=== PATIENT | female | born 1940 | race Caucasian/White ===

== ENCOUNTER 2016-11-17 13:31 | Observation (INO) | payer MEDICARE, BC ==
--- OUTSIDE RECORDS SUMMARY | 2016-11-17 14:30 | XMS REPORT | Continuity of Care Document ---
:1940 Author Organization [facility] ([facility]) Address [address] [place] [address] Phone [phone] Care Team Providers Name Role Phone Renea Gee Primary Care Provider [phone] Source Comments This disclosure is being made pursuant to the Care Everywhere program, applicable federal and state laws, and may not contain all informaitonavailable regarding this patient.[facility] ([facility]) Active Allergies and Adverse Reactions Allergen Noted Date Severity Reactions Comments Allopurinol 01/19/2010 Medium Fever,Elevated Creatinine,Rash Amoxicillin 06/19/2015 OTHER swollen Doxycycline Angioedema Fructose 01/09/2010 Diarrhea Gluten 02/24/2010 Diarrhea Pt has Celiac Disease Lactose 01/09/2010 Diarrhea Levofloxacin 06/19/2015 Urticaria (Hives) Red and swollen Meloxicam 04/02/2014 Angioedema Current Medications Prescription Sig. Disp. Refills Start Date End Date Status aspirin-acetaminophe take by mouth. Take 10/25/2006 Active n-caffeine (EXCEDRIN 1 tab up to 4 times EXTRA STRENGTH) daily as needed 250-250-65 mg Tab per tablet SIMETHICONE (GAS-X take by mouth. Dose 04/21/2004 Active PO) unknown--take as needed lactobacillus Take 1 Cap by mouth Active rhamnosus, gg, daily. (CULTURELLE) 10 billion cell capsule GREEN TEA EXTRACT PO Take 800 mg by mouth Active daily. multivitamin Take 1 Tab by mouth Active (MULTI-VITAMIN daily. HI-PO) tablet VITAMIN B COMPLEX PO Take 1 Tab by mouth Active daily. zolpiDEM 5 mg tablet Take 1 Tab by mouth 30 Tab 2 03/29/2012 Active at bedtime as needed. Indications: SLEEP-ONSET INSOMNIA ALPRAZolam 0.25 mg Take 1 Tab by mouth 30 Tab 0 03/29/2012 Active tablet at bedtime as needed. Indications: ANXIETY BIOTIN PO Take by mouth daily. Active esomeprazole Take 1 Cap by mouth 30 Cap 11 06/29/2012 Active (NEXIUM) 40 mg EC at bedtime. capsule Indications: GASTROESOPHAGEAL REFLUX diphenoxylate-atropi Take as needed for 60 Tab 2 01/08/2013 Active ne (LOMOTIL) diarrhea 2.5-0.025 mg per Indications: DIARRHEA tablet TURMERIC (CURCUMIN 1 Tab 2 times daily Active NA ) venlafaxine 37.5 mg Take 37.5 mg by mouth 10/03/2014 Active tablet daily. aspirin 81 mg EC Take 1 tablet (81 mg 30 tablet 11 07/06/2016 Active tablet total) by mouth daily. atorvastatin 40 mg Take 1 tablet (40 mg 90 tablet 3 07/06/2016 Active tablet total) by mouth daily. furosemide 20 mg Take 1 tablet (20 mg 90 tablet 3 07/06/2016 Active tablet total) by mouth daily. spironolactone 25 mg Take 0.5 tablets 90 tablet 3 07/06/2016 Active tablet (12.5 mg total) by mouth daily. ubiquinol (COQ10) Take 100 mg by mouth Active 100 mg capsule daily. Vitamin E 100 unit Take 100 Units by Active capsule mouth daily. metoPROLol succinate Take 1 tablet (50 mg 90 tablet 3 09/09/2016 Active 50 mg XL tablet total) by mouth daily. losartan 100 mg Take 1 tablet (100 mg 30 tablet 11 09/21/2016 Active tablet total) by mouth daily. 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 11/07/2016 Telephone Cardiac Karla Baxter Chief Comp: Symptom Rehabilitation Rajan RN Management 10/18/2016 Office Visit Cardiac Yogi Dx: CAD in [place] Rehabilitation Oscar Tolentino MD artery (Primary Dx) 10/18/2016 Office Visit Cardiac [facility]ogi Dx: Cardiomyopathy Rehabilitation MD Ameya Garcia Ramzi N, MD 10/14/2016 Office Visit Med Hematology and Link, Nicolas K, Dx: CLL (chronic Oncology MD sandra Rodriguez, leukemia) (Primary Unique A, Dx) [employer]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 09/21/2016 Hospital Encounter Internal Medicine - Yogi, Dx: Cardiomyopathy Primary Oscar Tolentino MD 09/21/2016 Surgery Cardiology Yogi, Coronary Angiography Oscar Tolentino MD 09/20/2016 Telephone Cardiology Obdulio, Chief Comp: Pre-op Neena Girard RN Exam 09/09/2016 Office Visit Pathology Yogi, Chief Comp: Patient Oscar Tolentino MD Reported Reason For Lab Services, Visit Irl 09/09/2016 Office Visit Cardiac Yogi Dx: Cardiomyopathy Rehabilitation Oscar Tolentino MD (Primary Dx) Immunizations Name Dates Previously Given Next Due Influenza, unspecified 03/03/2015,04/08/2013,04/16/2012,04/26/2006 Pneumococcal, unspecified 03/03/2015,01/24/2008 Social History Tobacco Use Types Packs/Day Years Used Date Never Smoker Smokeless Tobacco: Never Used Tobacco Cessation:Counseling Given: Yes Comments: Alcohol Use Drinks/Week oz/Week Comments Yes 2 Glasses of wine 0.5 - 1.0 social Last Filed Vital Signs Vital Sign Reading Time Taken Blood Pressure 122/72 10/18/2016 1:25 PM CDT Pulse 57 10/18/2016 1:25 PM CDT Temperature 37 C (98.6 F) 10/14/2016 10:21 AM CDT Respiratory Rate 16 10/14/2016 10:21 AM CDT Height 1.524 m (5') 10/18/2016 1:25 PM CDT Weight 60.782 kg (134 lb) 10/18/2016 1:25 PM CDT Body Mass Index 26.17 10/18/2016 1:25 PM CDT Oxygen Saturation 92% 10/18/2016 1:25 PM CDT Plan of Care Date Type Specialty Providers Description 12/08/2016 Appointment Renal and Hypertension Suneja, Silverio, MD Chief Comp: Patient [address] [place] [address] Visit [phone] (Fax) 02/01/2017 Appointment Heart and Vascular WalkerOscar, Subj: Appointment MD Scheduled [address] [place] [address] [phone] (Fax) 04/12/2017 Appointment Med Hematology and Nicolas Lauren MD Subj: Appointment Oncology [address] [facility] [place] [address] [phone] (Fax) Health Maintenance Due Date Last Done Comments Hepatitis B Vaccine (1 of 3 1940 - Primary Series) Tdap Vaccine 1952 Td Vaccine 1959 Mammogram 1981 Zoster Vaccine 2001 Osteoporosis Screening (DXA 2006 Bone Density) Pneumococcal Vaccine (1 of 2 2006 - PCV13) Lipid Disorder Screening 03/31/2016 03/31/2011, 03/18/2010 Influenza Vaccine: Seasonal 01/31/2017 03/03/2015, Additional history exists (Season Ended) 2013, 04/16/2012 Colonoscopy 12/14/2020 12/14/2010 Results from Last 3 Months DERMATOPATHOLOGY EXAM (11/09/2016 2:24 AM) Component Value Range Case Report Surgical Pathology Case: [id number] Authorizing Provider:Lab Services, [facility] Collected: 11/09/2016 02:24 AM Pathologist: Toni Melo MD Received:11/11/2016 07:50 AM Specimen:Skin, other, specify, Lip lower Diagnosis Skin, lower lip, shave biopsy: Features consistent with herpetic infection. Focal superficial scar. Brisk lymphoplasmacytic inflammation. Clinical Information Tissue source/site: Left lip. Pertinent clinical history and findings: 0.5 cm erythematous pearly papule. Clinical differential diagnosis: BCC vs scar. Gross Description A.Received in formalin, in a container labeled [place] R C, date of , and "Lip lower", is a 0.7 x 0.4 x 0.1 cm corley shave biopsy.The specimen is inked, bisected and submitted entirelyin A1. LRL/tkr Microscopic Description Sections show a skin shave demonstrating focal intraepidermal vesiculation featuring acantholysis and multinucleated giant cells with molded, enlarged nuclei exhibiting margination of chromatin, assoc iated with adjacent necroinflammatory debris, and underlying brisk, lymphoplasmacytic chronic inflammation.Focal central epidermal rete ridge attenuation is noted, overlying horizontal dermal fibr osis featuring variably arcuate, small blood vessels and scattered chronic inflammation. Performed by:Phoenix Rousseau MD, R4/rls I have personally reviewed this case and edited the report as necessary. Toni Melo MD Specimen Skin - Skin, other, specify ECHO ADULT - ECHOCARDIOGRAM, TRANSTHORACIC (10/18/2016 1:19 PM) Component Value Range Interpretation Summary Low normal left ventricular systolic function. LV Ejection Fraction=53% (based on Biplane Method of Discs). Mild aortic regurgitation. Patient Height (cm) 152.4 cm Patient Weight (kg) 61.2 kg Systolic Pressure (mmHg) 128 mmHg Diastolic Pressure (mmHg) 66 mmHg BSA (meters^2) 1.6 m^2 Left Ventricle (LV) Normal left ventricular size. Normal LV wall thickness Low normal left ventricular systolic function. LV Ejection Fraction=53% (based on Biplane Method of Discs). E/E' ratio is 13.0, which is indeterminate for LV filling pressure prediction. Abnormal LV septal wall motion (consistent with conduction abnormality) Right Ventricle (RV) Normal right ventricular size. Normal right ventricular systolic function. Left and Right Atria (LA, RA) Mildly enlarged left atrial size. Normal right atrial size. Mitral Valve (MV) Normal mitral valve leaflet morphology Trace mitral regurgitation Tricuspid Valve (TV) Normal tricuspid valve morphology Trace Tricuspid regurgitation RV/RA peak instantaneous systolic gradient=35mmHg. Aortic Valve (AoV) Trileaflet Aortic valve. Mild aortic regurgitation. No hemodynamically significant valvular aortic stenosis by doppler Pulmonic Valve (PV) The pulmonic valve leaflets are poorly seen. No pulmonic valve stenosis by doppler Trace pulmonic valve insufficiency by doppler. Aorta and Pulmonary Artery (Ao, PA) The aortic root is normal size. Pericardium/Pleura There is no pericardial effusion. Procedures IRL Complete 2D with Doppler, Color Flow and image documentation ( [id number]) I personally viewed the echocardiogram and approve the above interpretation Inf. Vena Cava (IVC) / Pulm. Veins A normal IVC diameter which collapses greater than 50% would support an normal RA pressure of 3 mmHg (range 0-5mmHg). IVSd 1.1 cm LVIDd 4.0 cm LVIDs 3.0 cm LVPWd 1.0 cm IVS/LVPW 1.1 Ao root diam 1.9 cm Ao root area 2.8 cm^2 LA dimension 3.8 cm LA/Ao 2.0 LVOT diam 2.0 cm LVOT area 3.1 cm^2 LVAd ap4 33.5 cm^2 EF(MOD-sp4) 53.4 % MV E max emerita 68.6 cm/sec MV A max emerita 81.4 cm/sec MV E/A 0.84 MV dec time 0.27 sec Ao V2 max 144.0 cm/sec Ao max PG 8.3 mmHg Ao max PG (full) 5.9 mmHg Ao V2 mean 100.5 cm/sec Ao mean PG 4.5 mmHg Ao V2 VTI 30.0 cm GABRIELE(I,D) 1.8 cm^2 GABRIELE(V,D) 1.7 cm^2 AI dec slope 180.5 cm/sec^2 AI P1/2t 657.2 msec LV V1 max 78.1 cm/sec LV V1 mean 52.4 cm/sec LV V1 VTI 17.3 cm TR Max emerita 294.0 cm/sec Low Range of LVEF 53 High Range of LVEF 53 Reason For Study non-ischemic cardiomyopathy, medical therapy Electroencephalographic Technician Dayana Durham Interpreting Physician Oscar Calix electronically signed on 2016-10-18 13:37:08.743 DIFFERENTIAL (10/14/2016 10:33 AM)Only the most recent of2 resultswithin the time period is included. Component Value Range % Manual Neutrophils 15.0 % Neutrophils-Manual 4000 6058-3113 /MM3 % Manual Lymphocytes 80.0 % Lymphocytes-Manual 99702(H) 875-3300 /MM3 % Manual Monocytes 2.0 % Monocytes-Manual 530 130-860 /MM3 % Manual Eosinophils 3.0 % Eosinophils-Manual 800(H) 40-390 /MM3 ANC (Absolute Neutrophil Count) 4000 /MM3 Specimen Whole Blood CBC (COMPLETE BLOOD COUNT) (10/14/2016 10:33 AM)Only the most recent of2 resultswithin the time period is included. Component Value Range WBC Count 26.7(H) 3.7-10.5 K/MM3 RBC Count 4.09 4.00-5.20 M/MM3 Hemoglobin 12.9 11.9-15.5 g/dL Hematocrit 38 35-47 % MCV (Mean Corpuscular Volume) 92 82-99 FL MCH (Mean Corpuscular Hemoglobin) 32 25-35 PG MCHC (Mean Corpuscular Hemoglobin Concentration) 34 32-36 % Platelet Count 184 150-400 K/MM3 MPV (Mean Platelet Volume) 10.0 9.4-12.3 FL RBC Dist Width-STD 46.7(H) 36.4-46.3 FL RBC Distrib Width 14.0 9.0-14.5 % Nucleated RBC 0 /100 WBC Specimen Whole Blood BLOOD CELL MORPHOLOGY (10/14/2016 10:33 AM)Only the most recent of2 resultswithin the time period is included. Specimen Whole Blood CBC WITH DIFFERENTIAL (10/14/2016 10:33 AM)Only the most recent of2 resultswithin the time period is included. Specimen Whole Blood Narrative The following orders were created for panel order CBC WITH DIFFERENTIAL. Procedure Abnormality Status --------- ------ CBC (COMPLETE BLOOD COUNT)[[id number]] AbnormalFinal result DIFFERENTIAL[[id number]] AbnormalFinal result Please view results for these tests on the individual orders. LACTATE DEHYDROGENASE (LDH) (10/14/2016 10:33 AM) Component Value Range LDH 241(H) 135-214 U/L Specimen Blood BASIC METABOLIC PANEL W/ CALCIUM (CHEM 8) (10/14/2016 10:33 AM)Only the most recent of2 resultswithin the time period is included. Component Value Range Sodium 139 135-145 mEq/L Potassium 4.4 3.5-5.0 mEq/L Chloride 102 95-107 mEq/L CO2 22 22-29 mEq/L BUN 43(H) 10-20 mg/dL Creatinine 1.4(H)Comment: 0.5-1.0 mg/dL Creatinine switched to enzymatic method on 11/09/2010.GFR equation switched to IDMS-traceable MDRD equation on 11/09/2010. Calculated GFR values are not valid in clinical settings where serum creatinine is changing. Glucose 91Comment: 65-99 mg/dL The Expert Committee on the Diagnosis and Classification of Diabetes has defined impaired fasting glucose as greater than or equal to 100 mg/dL but less than 126 mg/dL.(Diabetes Care 28 (Suppl 1)S41,2005) Calcium 10.0 8.5-10.5 mg/dL Anion Gap 15 mEq/L Calculated GFR 37(L) >60 mL/min/1.73 m2 Specimen Blood CARDIAC CATHETERIZATION (09/21/2016 9:10 AM) Narrative 1.Obstructive lesion in the first diagonal which is likely responsible for stress test abnormality but is not amenable to PCI. 2.Mildly Elevated RA pressure 3.Mild pulmonary hypertension 4.Normal LV filling pressure, cardiac index, and pulmonary artery saturation ECG - EKG 12 LEAD (09/09/2016 1:36 PM) Component Value Range ECG SEVERITY - ABNORMAL ECG - VENT. RATE 62 bpm RR 968 ms P-R INTERVAL 156 ms QRSD INTERVAL 146 ms QT INTERVAL 508 ms QTC INTERVAL 516 ms P AXIS 48 degrees QRS AXIS -38 degrees T WAVE AXIS 136 degrees REPORT SINUS RHYTHM LEFT BUNDLE BRANCH BLOCK Interpreting Physician: Oscar Calix MD
--- NOTE | 2016-11-17 15:09 | HP ---
Chief Complaint - Chief Complaint Date of Service: 11/17/16 Time of Service: 14:58 Chief Complaint: weakness and dizziness for the last few days. History of Present Illness: Patient is a 76-year-old WF with a history of HTN, HLD, CKD stage III, HFrEF which is now improved, who came into the office because of dizziness and weakness. She was found to have a BP of 80/40 and a BUN/CR 77/2.07. She was admitted into observation for IV fluids. - Patient's Past Medical History Additional info: PAST MEDICAL HISTORY: HTN, HLD, HFr EF Dxed 06/2016 ; NYHA class II with EF 37% [with cardiac cath 2016] with EF of 45-50% 10/2016, celiac disease, fructose and lactose intolerance [ per patient], CLL dxed in 2004, wait and watch approach till 2009 ; bendamustine x2 cycles in 2009, 2011 with some response; CKD stage III due to NSAID use /microvascular disease from HTN. GERD, osteoporosis, collagenous colitis. Squamous cell CA on chest, basal cell CA under LT breast. Several precancerous areas all over back and uses 5-FU topically on her face. Additional Info: CANCER H/O: CLL- 2004 Several skin cancers [ please see HPI]. Additional Info: PAST SURGICAL HISTORY: Tonsillectomy 1947; cholecystectomy 1995; CTS bilateral- RT 1999, LT 2014; colonoscopy- celiac disease, no polyps 12/2010; squamous cell CA- upper left chest- Mohs micrographic surgery of neck-08/2014; basal cell CA substernal- 2014. - Family History Father Family History - Medical: - - leukemia, CAD, skin CA. Mother Family History - Medical: - - dementia, kidney failure. Brother Family History - Medical: Kidney stone - Social History Living Situations: spouse Smoking Status: Never smoker Alcohol Use: none - Immunizations Hx Pneumococcal Vaccination: Yes History of Influenza Vaccine: No Review Of Systems (GEN) - Review of Systems Generalized/Overall Review: Present: Fatigue Respiratory: Absent: Cough, Shortness of Breath Cardiac: Absent: Chest Pain, Edema Abdominal: Absent: Nausea, Vomiting Immunizations: IMMUNIZATION HX History of Influenza Vaccine No Hx Pneumococcal Vaccination Yes Allergies/Adverse Reactions: Allergies Allergy/AdvReac Type Severity Reaction Status Date / Time allopurinol Allergy Other Verified 11/29/14 18:19 doxycycline Allergy Other Verified 11/29/14 18:19 meloxicam Allergy Other Verified 11/29/14 18:19 Home Medications: HOME MEDICATIONS Alprazolam 0.25 mg PO PRN PRN 01/19/14 [Last Taken Unknown] B Complex & C No.20/Folic Acid [Virt-Caps (1 mg FA B Comp W-C)] 1 mg PO DAILY [Last Taken Unknown] Biotin 1,000 mcg PO DAILY 01/19/14 [Last Taken Unknown] Colestipol HCl [Colestid] 7.5 gm PO PRN PRN 01/19/14 [Last Taken Unknown] Green Tea Extract [Dranochol] 800 mg PO DAILY 01/19/14 [Last Taken Unknown] Lactobacillus Rhamnosus GG [Culturelle] 1 each PO DAILY 01/19/14 [Last Taken Unknown] Multivit,Calc,Mins/Iron/Folic [Women's Daily Caplet] 1 each PO DAILY 01/19/14 [ Last Taken Unknown] Simethicone [Gas-X] 125 mg PO PRN PRN 01/19/14 [Last Taken Unknown] Turmeric [Curcumin] 1 gm MC DAILY 01/19/14 [Last Taken Unknown] Zolpidem Tartrate [Ambien] 5 mg PO HS PRN 01/19/14 [Last Taken Unknown] Venlafaxine HCl [Effexor] 37.5 mg PO DAILY 11/29/14 [Last Taken Unknown] Aspirin [Aspir-Low] 81 mg PO DAILY 11/17/16 [Last Taken Unknown] Metoprolol Succinate 25 mg PO HS 11/17/16 [Last Taken Unknown] Multivit-Min/FA/Lycopen/Lutein [Centrum Silver Tablet] 1 each PO DAILY 11/17/16 [Last Taken Unknown] valACYclovir HCL [Valtrex] 500 mg PO BID 11/17/16 [Last Taken Unknown] Famotidine [Pepcid] 40 mg PO BIDAC #60 tablet 11/18/16 [Last Taken Unknown] Exam - Exam Vital Signs: Vital Signs 11/17/16 14:34 Temperature 36.3 C L Pulse Rate 73 Resp.Rate 16 Blood Pressure 80/42 O2 Sat P.O. 92% RA Constitutional: Present: Elderly - in NAD, with low BP obtained in office. ENT Exam: Present: hearing grossly normal, dry mucous membranes Eye Exam: bilateral eye: PERRL, EOMI Neck: Present: normal inspection, trachea midline Breasts: Present: Exam deferred Respiratory: Present: lungs clear, normal breath sounds, no accessory muscle use Cardiovascular/Chest: Present: regular rate, rhythm. Absent: tachycardia Peripheral Pulses: carotid (R): 2+, carotid (L): 2+ Abdomen: Present: Normal bowel sounds, soft, nontender Extremity: Present: normal range of motion, non-tender, normal inspection, no pedal edema Skin Exam: Present: warm/dry, pallor Eye contact: Present: cooperative, good eye contact, normal speech Thoughts: Present: normal thought pattern, normal mood /affect Diagnostic Studies: Laboratory Tests 11/17/16 12:10 Plasma Sodium 138 Potassium 5.1 H D Chloride 101 Carbon Dioxide 27.6 BUN 77 H D Creatinine 2.07 H D Est GFR (Non-Af Amer) 25 L D Random Glucose 100 Assessment/Plan - Narrative Narrative: 1. Intravascular depletion with low BP: Baseline BUN/CR 43/1.45 [07/2016] now increased to 77/2.07 on admission. Hold losartan 50 mg in AM , metoprolol ER 25 mg at HS, furosemide 20 mg PO at noon and spironolactone 12.5 mg PO at noon. Hydrate patient with normal saline at 100 mL an hour. Recheck labs at 1300 hrs. on 11/18/2016. 2. GERD: D/C Nexium. Change to famotidine 40 mg PO BID AC as 20 mg PO BID did not work in the past. 2. Chronic medical problems: Other chronic medical problems include HTN, HLD, CAD, CKD stage III w/ GFR 37 ml /min [07/2016], C.L.L., multiple skin cancers, osteopenia/osteoporosis/ migraine headaches, celiac disease, fructose/lactose intolerance were reviewed and stable.
[2016-11-17] MEDS: NORMAL SALINE 1,000 ML IV PRN (15:30)
[2016-11-17] MEDS: FAMOTIDINE 20 MG TABLET PO SCH (17:03)
[2016-11-17] MEDS ORDERED: ZOLPIDEM TARTRATE 5 MG TABLET PO PRN (20:00)
[2016-11-18] MEDS: NORMAL SALINE 1,000 ML IV PRN ×2 (00:54→11:01)
[2016-11-18] MEDS: FAMOTIDINE 20 MG TABLET PO SCH (06:36)
[2016-11-18] MEDS ORDERED: VENLAFAXINE HCL 37.5 MG CAP.SR.24H PO SCH (09:00)
[2016-11-18 10:37] VITALS: BP 147/67
[2016-11-18 12:35] LABS: Hematocrit 37.4 % (37.0-47.0); Hemoglobin 11.9 gm/dL (12.5-16.0); Mean Cell Volume 98.2 fl (78-100); Mean Corpuscular Hemoglobin 31.2 pg (27-31); Mean Corpuscular Hgb Conc 31.8 g/dl (32-36); Mean Platelet Volume 9.7 fl (6.0-9.5); Platelet Count 169 K/mm3 (150-450); Red Blood Count 3.81 M/mm3 (4.2-5.4); White Blood Count 25.9 K/mm3 (4.0-10.5)
[2016-11-18 12:39] LABS: Total Cells Counted 100
[2016-11-18 12:46] LABS: Albumin * 4.2 gm/dl (3.4-5.0); Anion Gap 12.4 mmol/L (6.8-13.8); BUN/Creatinine Ratio 34.2 (9.0-21.6); Calcium * 8.7 mg/dL (7.9-10.9); Potassium 4.4 mmol/L (3.4-4.6); Total Protein 7.1 gm/dL (6.2-8.2)
[2016-11-18 12:47] LABS: Bilirubin, Total 0.3 mg/dL (0.0-1.1); Ca. Corrected For Albumin 8.2 mg/dL (8.4-10.2)
[2016-11-18 13:03] LABS: Eosinophil 1 % (0-3); Lymphocyte 86 % (20-51); Monocyte 1 % (0-9); Neutrophil 12 % (42-75); Neutrophil # 3.1 K/mm3 (1.3-6.0)
[2016-11-18 13:10] LABS: Platelet Estimate Normal (NORMAL); RBC Morphology Normal (NORMAL)
--- NOTE | 2016-11-18 15:17 | DS ---
<Caprice Burton - Last Filed: 11/20/16 17:02> (1) CKD (chronic kidney disease) stage 3, GFR 30-59 ml/min Problem: Chronic (2) Dizziness Problem: Acute (3) Dehydration Problem: Acute (4) Hypotension Problem: Acute (5) CLL (chronic lymphocytic leukemia) Problem: Chronic Description of Stay: Date of admission: 11/17/16 Date of discharge: 11/18/16 Description of Stay: Patient is a 76-year-old WF with a history of HTN, HLD, CKD stage III, HFrEF which is now improved, who came into the office because of dizziness and weakness. She was found to have a BP of 80/40 and a BUN/CR 77/2.07. She was admitted into observation for IV fluids. Baseline BUN/CR 43/1.45 [07/2016] now increased to 77/2.07 on admission. Hold losartan 50 mg in AM , metoprolol ER 25 mg at HS, furosemide 20 mg PO at noon and spironolactone 12.5 mg PO at noon. Hydrate patient with normal saline at 100 mL an hour. Recheck labs at 1300 hrs. on 11/18/2016. D/C Nexium. Change to famotidine 40 mg PO BID AC as 20 mg PO BID did not work in the past. Remained stable overnight. discharged to home the next day. Procedures Performed: none Discharge Disposition: Home self care Disposition: Home self-care Condition: Undetermined Discharge Activity: Activity as tolerated Discharge Diet: General/regular food Referrals: Renea Gee MD [Primary Care Provider] - Problem Oriented Discharge Instructions to Patient/Family: Dehydration, Adult, [id number], Rehydration, Adult Additional Patient Instructions (free text): Push fluids, such as water! Follow up for blood pressure check on monday @ 4:00pm in Dr. Gee's office New medication: - Pepcid 40mg 2 times a day with meals Discontinued medications: - Nexium - Lorsartan - All Diuretics Restart all OTC medications. Prescriptions (Any new or edited meds): Famotidine [Pepcid] 40 mg PO BIDAC #60 tablet Complete Home Medications List: Complete Home Medication List: Alprazolam 0.25 mg PO PRN PRN 01/19/14 B Complex & C No.20/Folic Acid [Virt-Caps (1 mg FA B Comp W-C)] 1 mg PO DAILY Biotin 1,000 mcg PO DAILY 01/19/14 Colestipol HCl [Colestid] 7.5 gm PO PRN PRN 01/19/14 Green Tea Extract [Dranochol] 800 mg PO DAILY 01/19/14 Lactobacillus Rhamnosus GG [Culturelle] 1 each PO DAILY 01/19/14 Multivit,Calc,Mins/Iron/Folic [Women's Daily Caplet] 1 each PO DAILY 01/19/14 Simethicone [Gas-X] 125 mg PO PRN PRN 01/19/14 Turmeric [Curcumin] 1 gm MC DAILY 01/19/14 Zolpidem Tartrate [Ambien] 5 mg PO HS PRN 01/19/14 Venlafaxine HCl [Effexor] 37.5 mg PO DAILY 11/29/14 Aspirin [Aspir-Low] 81 mg PO DAILY 11/17/16 Metoprolol Succinate 25 mg PO HS 11/17/16 Multivit-Min/FA/Lycopen/Lutein [Centrum Silver Tablet] 1 each PO DAILY 11/17/16 valACYclovir HCL [Valtrex] 500 mg PO BID 11/17/16 Famotidine [Pepcid] 40 mg PO BIDAC #60 tablet 11/18/16 <Renea Gee - Last Filed: 12/18/16 19:54> (1) Dehydration Problem: Acute (2) CKD (chronic kidney disease) stage 3, GFR 30-59 ml/min Problem: Chronic (3) CLL (chronic lymphocytic leukemia) Problem: Chronic Procedures Performed: none
== END 2016-11-18 16:11 | disposition home or self-care (01) ==
LOC: MS 14:26 → UNDOADMOB 14:26 → MS 14:51
PROVIDERS: ADMIT Internal Medicine; ATTEND Internal Medicine
DX: E86.0 Dehydration (principal); I95.1 Orthostatic hypotension; I12.9 Hypertensive chronic kidney disease with stage 1 through stage 4 chronic kidney disease, or unspecified chronic kidney disease; N18.3 Chronic kidney disease, stage 3 (moderate); I50.22 Chronic systolic (congestive) heart failure; C91.10 Chronic lymphocytic leukemia of B-cell type not having achieved remission; E78.5 Hyperlipidemia, unspecified; K90.0 Celiac disease; K21.9 Gastro-esophageal reflux disease without esophagitis; I25.10 Atherosclerotic heart disease of native coronary artery without angina pectoris
CPT/HCPCS: 36415; 80053; 85007; 85025; 96360; 96361; G0378; G0379

== ENCOUNTER 2017-02-01 14:41 | Emergency (ER) | payer MEDICARE, BC ==
[2017-02-01 14:49] VITALS: BP 126/80
[2017-02-01] MEDS ORDERED: MAGNESIUM CITRATE 300 ML BTL PO ONE (15:35)
[2017-02-01] MEDS ORDERED: MAGNESIUM CITRATE 300 ML BTL ONE (15:38)
--- NOTE | 2017-02-01 15:40 | ERNOTE ---
Abdominal HPI - Narrative Date of Service: 02/01/17 - General Chief Complaint: Constipation Time Seen by Provider: 02/01/17 15:00 Source: patient, RN notes reviewed Exam Limitations: no limitations - Immun/Allergies/Home Medications Immunizatons: IMMUNIZATION HX Immunizations Up to Date Yes History of Influenza Vaccine Yes Hx Pneumococcal Vaccination Yes Allergies/Adverse Reactions: Allergies allopurinol Allergy (Verified 02/01/17 14:49) Other doxycycline Allergy (Verified 02/01/17 14:49) Other meloxicam Allergy (Verified 02/01/17 14:49) Other Home Medications: HOME MEDICATIONS Alprazolam 0.25 mg PO PRN PRN 01/19/14 [Last Taken Unknown] B Complex & C No.20/Folic Acid [Virt-Caps (1 mg FA B Comp W-C)] 1 mg PO DAILY [Last Taken Unknown] Biotin 1,000 mcg PO DAILY 01/19/14 [Last Taken Unknown] Colestipol HCl [Colestid] 7.5 gm PO PRN PRN 01/19/14 [Last Taken Unknown] Green Tea Extract [Dranochol] 800 mg PO DAILY 01/19/14 [Last Taken Unknown] Lactobacillus Rhamnosus GG [Culturelle] 1 each PO DAILY 01/19/14 [Last Taken Unknown] Multivit,Calc,Mins/Iron/Folic [Women's Daily Caplet] 1 each PO DAILY 01/19/14 [ Last Taken Unknown] Simethicone [Gas-X] 125 mg PO PRN PRN 01/19/14 [Last Taken Unknown] Turmeric [Curcumin] 1 gm MC DAILY 01/19/14 [Last Taken Unknown] Zolpidem Tartrate [Ambien] 5 mg PO HS PRN 01/19/14 [Last Taken Unknown] Venlafaxine HCl [Effexor] 37.5 mg PO DAILY 11/29/14 [Last Taken Unknown] Aspirin [Aspir-Low] 81 mg PO DAILY 11/17/16 [Last Taken Unknown] Metoprolol Succinate 25 mg PO HS 11/17/16 [Last Taken Unknown] Multivit-Min/FA/Lycopen/Lutein [Centrum Silver Tablet] 1 each PO DAILY 11/17/16 [Last Taken Unknown] valACYclovir HCL [Valtrex] 500 mg PO BID 11/17/16 [Last Taken Unknown] Famotidine [Pepcid] 40 mg PO BIDAC #60 tablet 11/18/16 [Last Taken Unknown] - History of Present Illness Narrative: 76 y/o female to the ED by private vehicle for constipation. She was ill with nausea and vomiting last week, so she was not eating much. She was also prescribed Zofran for her symptoms. She has not had a bowel movement for 6 or 7 days. She has taken Senna, Dulcolax and used a Fleets enema without results. She reports having occasional mild abdominal pain, but mostly just feeling bloated. Prior Treatment: Present: recently seen - By cardiology today Review of Systems - Review of Systems Constitutional: Present: recent illness. Absent: fever, fatigue, malaise EYE: Present: no symptoms reported ENT: Present: no symptoms reported Respiratory: Absent: shortness of breath, cough Cardiology: Absent: chest pain, syncope Gastrointestinal/Abdominal: Present: eating less, drinking less. Absent: vomiting, diarrhea Genitourinary: Absent: frequency, dysuria Musculoskeletal: Absent: back pain, joint pain Skin: Absent: rash, lesions Neurological: Absent: headache, dizziness/light-headedness Endocrine: Present: no symptoms reported Hematologic/Lymphatic: Present: no symptoms reported Psych: Present: no symptoms reported - Patient's Past Medical History Patient History - Medical: No pertinent hx Patient History - Cardiac/Respiratory: Myocardial Infarction Patient History - Cancer: Leukemia, Lymphoma, Other Patient History - Surgical Procedures: Cholecystectomy, T & A, Other Patient History - Other: None LMP (females 10-50): Menopausal - Family History Father Family History - Medical: Mother Family History - Medical: Brother Family History - Medical: Kidney stone - Social History Living Situations: spouse Abuse History: No History of abuse Psych History: No pertinent hx Smoking Status: Never smoker Alcohol Use: none Drug Use: none - Immunizations Immunizations Up to Date: Yes Hx Pneumococcal Vaccination: Yes History of Influenza Vaccine: Yes Physical Exam - Physical Exam General Appearance: Present: wd/wn, alert, no apparent distress Neck: Present: normal inspection, nontender, supple Respiratory: Present: no respiratory distress, normal breath sounds, no accessory muscle use, lungs clear Cardiovascular/Chest: Present: regular rate, rhythm, no murmur Gastrointestinal/Abdominal: Present: normal bowel sounds, nontender, nondistended, soft Neurological Exam: Present: alert, oriented, normal mood/affect, no motor/ sensory deficits Skin Exam: Present: normal color, warm/dry ED Progress - Vital Signs Patient's Vital Signs:: I have reviewed the patient's vital signs. Vital Signs: Vital Signs 02/01/17 14:45 Temperature 36.5 C Pulse Rate 62 Respiratory 16 Rate Blood Pressure 126/80 O2 Sat by Pulse 98 Oximetry - X-Ray X-Ray #1 X-Ray: abdomen Interpretation: Reviewed by me X-ray Comments: mild stool retention - Progress/Reassessment Chief Complaint: Constipation Progress:: Unchanged Plan - Plan Plan: D/C'd home with magnesium citrate to drink there. To f/u as needed if symptoms do not improve. Departure - Departure Clinical Impression: Constipation Qualifiers: Constipation type: unspecified constipation type Qualified Code(s): K59.00 - Constipation, unspecified Disposition: Home self-care Condition: Good Instructions: Constipation, Adult, [id number] Referrals: Renea Gee MD [Primary Care Provider] -
== END 2017-02-01 15:45 | disposition home or self-care (01) ==
LOC: ER 14:41
DX: K59.00 Constipation, unspecified (principal); C91.91 Lymphoid leukemia, unspecified, in remission

== ENCOUNTER 2019-03-23 09:03 | Inpatient (IN) ==
[2019-03-23 09:40] LABS: Hematocrit 26.5 % (37.0-47.0); Hemoglobin 8.5 gm/dL (12.5-16.0); Mean Cell Volume 98.1 fl (78-100); Mean Corpuscular Hemoglobin 31.5 pg (27-31); Mean Corpuscular Hgb Conc 32.1 g/dl (32-36); Mean Platelet Volume 8.8 fl (8-12.5); Platelet Count 173 K/mm3 (150-450); Red Cell Distribution Width 14.1 % (11.5-14.0); White Blood Count 22.5 K/mm3 (4.0-10.5)
[2019-03-23 09:46] LABS: Total Cells Counted 100
[2019-03-23 09:55] LABS: Troponin I 0.031 ng/mL (0.00-0.10)
[2019-03-23 09:58] LABS: Albumin * 3.4 gm/dl (3.4-5.0); Anion Gap 15.5 mmol/L (6.8-13.8); BUN/Creatinine Ratio 69.2 (9.0-21.6); Bilirubin, Total 0.4 mg/dL (0.0-1.1); Ca. Corrected For Albumin 8.8 mg/dL (8.4-10.2); Calcium * 8.6 mg/dL (7.9-10.9); Carbon Dioxide 23.6 mmol/L (24-32.6); Potassium 4.1 mmol/L (3.4-4.6); Total Protein 5.5 gm/dL (6.2-8.2)
[2019-03-23] MEDS ORDERED: KETOROLAC TROMETHAMINE 30 MG/ML VIAL IV ONE (10:09)
[2019-03-23] MEDS ORDERED: NORMAL SALINE 1,000 ML IV ONE ×2 (10:09→11:54)
--- NOTE | 2019-03-23 10:22 | ERNOTE ---
Lower Extremity HPI - Narrative Date of Service: 03/23/19 - General Lower Extremities Pain: ankle: left Time Seen by Provider: 03/23/19 09:54 Source: patient, family Exam Limitations: no limitations - Immun/Allergies/Home Medications Immunizations: IMMUNIZATION HX Immunizations Up to Date Yes History of Influenza Vaccine Yes Hx Pneumococcal Vaccination Yes Allergies/Adverse Reactions: Allergies Allergy/AdvReac Type Severity Reaction Status Date / Time alendronate sodium Allergy Unknown Throat Verified 03/23/19 09:08 [From Fosamax] irritation allopurinol Allergy Unknown Rash Verified 03/23/19 09:08 doxycycline Allergy Unknown Swelling Verified 03/23/19 09:08 meloxicam Allergy Unknown Eyes, Verified 03/23/19 09:08 lips, ears swollen fructose AdvReac Unknown Gas/GI Verified 03/23/19 09:08 upset gluten AdvReac Unknown abdominal Verified 03/23/19 09:08 cramping lactose AdvReac Unknown GI upset Verified 03/23/19 09:08 lisinopril AdvReac Unknown Cough Verified 03/23/19 09:08 sertraline [From Zoloft] AdvReac Unknown Nausea, Verified 03/23/19 09:08 headache Home Medications: HOME MEDICATIONS RX: Lactobacillus Rhamnosus GG [Culturelle] 1 ea PO DAILY 01/19/14 [Last Taken Unknown] RX: Multivit-Min/FA/Lycopen/Lutein [Centrum Silver Tablet] 1 ea PO DAILY 11/17/16 [Last Taken Unknown] famotidine 40 mg tablet 40 mg PO BIDAC #180 tab 01/15/18 [Last Taken Unknown] B-complex with vitamin C tablet 1 tab PO DAILY 03/23/18 [Last Taken Unknown] acyclovir 400 mg tablet 400 mg PO .prn tab 03/23/18 [Last Taken Unknown] furosemide 20 mg tablet 20 mg PO .1QW PRN tab 05/09/18 [Last Taken Unknown] simethicone 125 mg capsule 125 mg PO DAILY PRN 05/09/18 [Last Taken Unknown] ilrpytw-cvonkquyszqoh-hckyssqj 250 mg-250 mg-65 mg tablet See Rx Instructions PO Q6H PRN 05/29/18 [Last Taken Unknown] losartan 25 mg tablet 25 mg PO DAILY #90 tab 06/20/18 [Last Taken Unknown] zolpidem 5 mg tablet 5 mg PO HS PRN #90 tab 06/20/18 [Last Taken Unknown] atorvastatin 40 mg tablet 40 mg PO DAILY #90 tab 09/26/18 [Last Taken Unknown] metoprolol succinate ER 50 mg tablet,extended release 24 hr 50 mg PO DAILY #90 tab 09/26/18 [Last Taken Unknown] spironolactone 25 mg tablet 12.5 mg PO .Mon, Wed, Fri #12 tab 12/11/18 [Last Taken Unknown] diphenoxylate-atropine 2.5 mg-0.025 mg tablet 1 tab PO Q6H PRN #30 tab 12/21/18 [Last Taken Unknown] venlafaxine ER 75 mg capsule,extended release 24 hr 75 mg PO DAILY #90 cap 01/07/19 [Last Taken Unknown] - History of Present Illness Narrative: Patient is a 78 years old female brought in by ambulance after having a fall at home in the bathroom during which she twisted her left ankle. Patient also reported having shortness of breath since yesterday, and nausea and diarrhea since this morning. Patient was in the bathroom, just had a bout of dark watery stool, and he felt nauseated and got up to to access the garbage can out of fear of having to vomit. Upon standing patient fell weak and fell to the floor twisting her ankle.. She was not able to get up and bear weight, and she noticed deformity of her left ankle. Patient denies loss of consciousness. 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 Also worth mentioning patient has CLL diagnosed 10 years ago. Occurred: just prior to arrival Method of Injury: Reports: fell, twisted Reason for Fall: Reports: slipped, tripped Loss of Consciousness: Reports: no loss of consciousness Associated Symptoms: Reports: unable to bear weight Other Injuries: Reports: none Review of Systems - Review of Systems Constitutional: Absent: fever, chills EYE: Absent: eye discharge, blurred vision Respiratory: Present: shortness of breath Cardiology: Absent: chest pain, palpitations Gastrointestinal/Abdominal: Present: nausea, vomiting, diarrhea, other - dark tarry loose stool, multiple since yesterday Genitourinary: Present: no symptoms reported Musculoskeletal: Present: joint pain, other - left ankle pain and deformity. Absent: back pain Endocrine: Present: no symptoms reported Hematologic/Lymphatic: Present: no symptoms reported All Other Systems: All systems neg except as marked Medical History (Updated 03/23/19 @ 15:56 by Oleg Gilmore MD) Essential Hypertension (Chronic) Chemo Therapy (Resolved) Onset Date: ~2011 Skin cancer (Resolved) Onset Date: ~2012 Chest is squamous cell and under bra basal cell. Sev pre-cancerous areas all over back. Uses 5FU (chemo) topically on her face. 2012 Osteopenia (Chronic) Onset Date: 05/04/14 Osteoarthritis (Chronic) Onset Date: 09/27/11 HTN (hypertension) (Chronic) Onset Date: 09/27/11 Hyperlipidemia (Chronic) Onset Date: 09/14/16 GERD (gastroesophageal reflux disease) (Chronic) Onset Date: 05/13/13 Cardiomyopathy (Chronic) Onset Date: Unknown CAD (coronary artery disease) (Chronic) Onset Date: Unknown Anxiety and depression (Chronic) Onset Date: 09/09/14 Rash and nonspecific skin eruption (Acute) CKD (chronic kidney disease) stage 3, GFR 30-59 ml/min (Chronic) Dizziness (Acute) Dehydration (Resolved) Hypotension (Acute) CLL (chronic lymphocytic leukemia) (Chronic) MONSERRAT (acute kidney injury) (Acute) Constipation (Acute) Chest wall pain (Acute) Chronic kidney disease (CKD) (Chronic) Onset Date: Unknown Celiac disease (Chronic) Onset Date: ~2001 CLL (chronic lymphocytic leukemia) (Chronic) Onset Date: ~2004 History of IL (myocardial infarction) Onset Date: Unknown History of echocardiogram Onset Date: Unknown Melanoma Onset Date: ~08/2018 lower lip Surgical History: Surgical History (Updated 03/23/19 @ 15:50 by Berhane Anton DO) History of bilateral carpal tunnel release Onset Date: ~12/2014 Right hand 1999, left hand 12/2014 History of excision of lesion Onset Date: ~2014 Squamous cell cancer removal off Lt side of chest, Basal cell removed substernal. History of stress test Onset Date: 06/09/16 Abnormally low EF of 37% Hx of cardiac catheterization Onset Date: ~08/2016 Dr. Calix Hx of cholecystectomy Onset Date: ~1995 Hx of colonoscopy Onset Date: ~12/2010 Celiac disease, no polyps Hx of tonsillectomy Onset Date: ~1947 Mohs micrographic surgery of neck Onset Date: 08/21/14 [facility] [place], [place] Family History: Family History (Updated 03/09/18 @ 06:17 by Myrna Sarmiento) Father , Age 89 Leukemia Heart disease Cancer Skin Mother , Age 89 Dementia Kidney failure Grandmother , (Paternal) Cancer Poss abdominal, mastectomy Grandfather , (Maternal) Diverticulosis Daughter Thyroid disease Bi-polar Celiac disease Other Father quadruple bypass Social History: (Last Reviewed 03/23/19 @ 09:08 by Lalita Luu RN) Social History: Marital status: household members: spouse current occupational status: retired Service: No Tobacco: Smoking Status: Never smoker Alcohol: alcohol intake: current alcohol intake frequency: a few times a month details: Some day - 1/wk - occasional social - wine Substance Use: substance use type: does not use Dietary Habits: caffeine: No caffeine comment: Former Physical Exam - Physical Exam General Appearance: Present: alert, no apparent distress Head Exam: Present: normal inspection, no evidence of injury Eye Exam: Normal inspection: bilateral, PERRL: bilateral Ears, Nose, Throat: Present: normal ENT inspection Neck: Present: normal inspection, nontender, supple Respiratory: Present: no respiratory distress, normal breath sounds Cardiovascular/Chest: Present: regular rate, rhythm, no murmur, normal peripheral pulses Peripheral Pulses: N=norm/S=strong/W=weak/B=bound/A=absent: Radial (R): Normal, Radial (L): Normal, Femoral (R): Normal, Femoral (L): Normal, Dorsalis-pedis (R): Normal, Dorsalis-pedis (L): Normal Gastrointestinal/Abdominal: Present: normal bowel sounds, nontender, nondistended, other - positive hemocult Rectal Exam: Present: other - hemoccult positive Back Exam: Present: normal inspection Extremity Exam: Present: joint swelling, other - mild deformity of left ankle Progress - Results and Orders Patient's Lab Results:: I have reviewed the patient's lab results. - Vital Signs Patient's Vital Signs:: I have reviewed the patient's vital signs. Vital Signs: Vital Signs 03/23/19 09:04 03/23/19 10:00 Temperature 35.7 C L Pulse Rate 67 68 Respiratory Rate 17 Blood Pressure 92/51 89/51 L O2 Sat by Pulse Oximetry 98 99 - X-Ray X-Ray #1 X-Ray: chest Interpretation: Interp. by me X-ray Comments: no acute cardiopulmonary findings X-Ray #2 Interpretation: Interp. by me X-ray Comments: bi malleolar laterally displaced fracture X-Ray #3 X-Ray: ankle X-ray Comments: post reduction left ankle, showed successful reduction - Progress/Reassessment Chief Complaint: Ankle Injury/ Pain Progress Note-Subjective: 03/23/19 13:45 -consulted Dr. Fields, hospitalist for admission of acute blood loss anemia, GI bleed, dehydration, and bimalleolar left ankle fracture. Dr. Fields accepted admission. 03/23/19 14:00 -consulted Dr. Gilmore, general surgery, for a GI bleed. Informed Dr. Gilmore on that patient has been admitted to hospitalist, received 40 mg of Protonix IV, 2.5 L of normal saline, & type and screen. Dr. lepe will see patient on the floor. Procedures Date and time: 03/23/19 13:15: Location: left ankle Pre-Proc Neuro Vasc Exam: normal Hand-Made Type: orthoglass Splint: posterior leg Alignment good: Yes Splint applied by: ED physician Post-Proc Neuro Vasc Exam: normal Complications: Pt sedrick procedure well Immediate Post Procedure Note: Patient left ankle was anesthetized with in hematoma block with 15 mL of Marcaine and patient also received 50 mcg of fentanyl. Patient tolerated reduction well, and postreduction x-ray showed well aligned. Plan - Plan Plan: Patient is a 78 years old who present with a deformity to her left ankle, and hypotension. Patient x-ray showed a bimalleolar fracture which was successfully reduced with a new hematoma block and splint with Ortho-Glass. Case was discussed with MIKE Cabrera who recommended follow-up with orthopedist on Monday. Patient received 2.5 L of IV fluid as she was hypotensive, appears dehydrated, has had diarrhea, and hemoccult was positive. Her hemoglobin was found to be 8.5 a reduction of almost 4 points in the last month, she was typed and screened and given Protonix IV. I discussed the case with Dr. Berhane Fields hospitalist who accepted admission for acute blood loss anemia, GI bleed, dehydration, and bimalleolar fracture. I also consulted Dr. Gilmore general surgeon as patient will likely need a GI scope. Patient has leukocytosis at 22.5, this is chronic due to her CLL, furthermore confirmed by elevated lymphocyte and normal neutrop hil. Departure Clinical Impression: Acute blood loss anemia, Dehydration Closed bimalleolar fracture of left ankle Qualifiers: Encounter type: initial encounter Qualified Code(s): S82.842A - Displaced bimalleolar fracture of left lower leg, initial encounter for closed fracture - Departure Disposition: Still a patient Condition: Fair
[2019-03-23 10:54] LABS: Band 1 % (0-2.0); Lymphocyte 52 % (20-51); Monocyte 3 % (0-9); Neutrophil 44 % (42-75); Neutrophil # 9.9 K/mm3 (1.3-6.0); Platelet Estimate Normal (NORMAL); RBC Morphology Normal (NORMAL)
[2019-03-23] MEDS ORDERED: MORPHINE SULFATE 4 MG/ML SYRG IV ONE ×2 (11:54→12:36)
[2019-03-23] MEDS ORDERED: BUPIVACAINE HCL 50 ML VIAL IJ ONE (12:04)
[2019-03-23] MEDS ORDERED: ONDANSETRON HCL/PF 2 MG/ML VIAL IV ONE (12:07)
[2019-03-23] MEDS ORDERED: ONDANSETRON HCL/PF 2 MG/ML VIAL ONE (12:08)
[2019-03-23 12:28] LABS: Urine Appearance Clear (CLEAR); Urine Bilirubin Negative (NEGATIVE); Urine Color Yellow; Urine Ketone Negative (NEGATIVE)
[2019-03-23 12:29] LABS: Urine Bacteria None Seen; Urine Blood 25 /ul (NEGATIVE); Urine Nitrite Negative (NEGATIVE); Urine Protein Negative (NEGATIVE); Urine RBC 0-5 /hpf (0-5); Urine Urobilinogen Normal (NORMAL); Urine WBC 0-5 /hpf (0-5); Urine pH 5.5 pH (5.0-7.0)
[2019-03-23] MEDS ORDERED: fentaNYL CITRATE/PF 50 MCG/ML AMPUL IV ONE (12:57)
[2019-03-23] MEDS ORDERED: NORMAL SALINE 500 ML IV ONE (14:00)
[2019-03-23] MEDS ORDERED: PANTOPRAZOLE SODIUM 40 MG/100 ML PIGGYBACK IV ONE (14:03)
[2019-03-23] MEDS ORDERED: DIPHENOXYLATE HCL/ATROP SULF 2.5 MG TABLET PO PRN (15:15)
[2019-03-23] MEDS ORDERED: ASPIRIN/ACETAMINOPHEN/CAFFEINE 1 TAB TAB PO PRN (15:15)
[2019-03-23] MEDS ORDERED: SIMETHICONE 80 MG TAB.CHEW PO PRN (15:15)
--- NOTE | 2019-03-23 15:32 | CONS ---
HPI - General Date of Service: 03/23/19 Source: patient - History of Present Illness Timing/Duration: 24 hours Severity: moderate Modifying Factors - (Worsens): Reports: eating Modifying Factors - (Improves): Reports: rest Associated Symptoms: other - orthostasis Allergies/Adverse Reactions: Allergies alendronate sodium [From Fosamax] Allergy (Unknown, Verified 03/23/19 09:08) Throat irritation allopurinol Allergy (Unknown, Verified 03/23/19 09:08) Rash doxycycline Allergy (Unknown, Verified 03/23/19 09:08) Swelling meloxicam Allergy (Unknown, Verified 03/23/19 09:08) Eyes, lips, ears swollen fructose Adverse Reaction (Unknown, Verified 03/23/19 09:08) Gas/GI upset gluten Adverse Reaction (Unknown, Verified 03/23/19 09:08) abdominal cramping diarrhea lactose Adverse Reaction (Unknown, Verified 03/23/19 09:08) GI upset lisinopril Adverse Reaction (Unknown, Verified 03/23/19 09:08) Cough sertraline [From Zoloft] Adverse Reaction (Unknown, Verified 03/23/19 09:08) Nausea, headache Home Medications: Home Medications Medication Instructions Recorded Last Taken Lactobacillus Rhamnosus GG 1 ea PO DAILY 01/19/14 Unknown [Culturelle] Multivit-Min/FA/Lycopen/Lutein 1 ea PO DAILY 11/17/16 Unknown [Centrum Silver Tablet] famotidine 40 mg tablet 40 mg PO BIDAC #180 tab 01/15/18 Unknown B-complex with vitamin C tablet 1 tab PO DAILY 03/23/18 Unknown acyclovir 400 mg tablet 400 mg PO .prn tab 03/23/18 Unknown furosemide 20 mg tablet 20 mg PO .1QW PRN tab 05/09/18 Unknown simethicone 125 mg capsule 125 mg PO DAILY PRN 05/09/18 Unknown [id number] 250 See Rx Instructions PO Q6H PRN 05/29/18 Unknown mg-250 mg-65 mg tablet losartan 25 mg tablet 25 mg PO DAILY #90 tab 06/20/18 Unknown zolpidem 5 mg tablet 5 mg PO HS PRN #90 tab 06/20/18 Unknown atorvastatin 40 mg tablet 40 mg PO DAILY #90 tab 09/26/18 Unknown metoprolol succinate ER 50 mg 50 mg PO DAILY #90 tab 09/26/18 Unknown tablet,extended release 24 hr spironolactone 25 mg tablet 12.5 mg PO .Mon, Wed, Fri #12 tab 12/11/18 Unknown diphenoxylate-atropine 2.5 1 tab PO Q6H PRN #30 tab 12/21/18 Unknown mg-0.025 mg tablet venlafaxine ER 75 mg 75 mg PO DAILY #90 cap 01/07/19 Unknown capsule,extended release 24 hr Review of Systems - Review of Systems Generalized/Overall Review: Present: Weakness. Absent: Chills, Fever EENTM: Present: Other - dry mouth Respiratory: Absent: Shortness of Breath Cardiac: Present: Other - orthostasis. Absent: Chest Pain Abdominal: Present: Other - black diarrhea, recent heartburn---had switched from Nexium to famodidine 2 months ago poor po intake due to dry mouth, celiac disease and lactose intolerant Genitourinary: Present: No Symptoms Reported Musculoskeletal: Present: Other - fracture dislocation of left ankle feels better after reduction Neurological: Present: Weakness, Other - numbness left lip/cheek Skin: Present: No Symptoms Reported Endocrine: Present: No Symptoms Reported Physical Examination - Exam Vital Signs: Vital Signs - Last Taken Temp 35.7 C L 03/23/19 09:04 Pulse 80 03/23/19 14:23 Resp 12 03/23/19 14:23 BP 106/49 03/23/19 14:23 Pulse Ox 98 03/23/19 14:23 O2 Oxygen Delivery Method Room Air Constitutional: Present: Alert, Oriented x3, Cooperative, Well nourished, Mild distress ENT Exam: Present: other - surcical changes of lip, dry mucous membranes Eye Exam: bilateral eye: normal inspection Neck: Present: full range of motion, normal inspection Respiratory: Present: normal breath sounds, no respiratory distress Cardiovascular/Chest: Present: regular rate, rhythm Abdomen: Present: Normal bowel sounds, soft, nontender /Rectal: Present: Exam deferred Extremity: Present: other - left leg posterior splint Skin Exam: Present: warm/dry, pallor Neurologic: Present: campus recruiting coordinator II-XII nml as tested, normal cerebellar test, no motor/sensory deficits Appearance: Present: appropriate appearance, appropriate insight, neat Eye contact: Present: cooperative, good eye contact, normal speech Thoughts: Present: normal thought pattern - Results and Findings: Lab/Microbiology results last 24 hrs: Abnormal/Pending Laboratory Last 24 HRS 03/23/19 03/23/19 03/23/19 12:11 11:55 09:33 WBC RBC Hgb Hct MCH RDW Lymphocytes % (Manual) Neutrophils # (Manual) Lymphocytes # (Manual) Carbon Dioxide 23.6 L Anion Gap 15.5 H BUN 81 H D Est GFR (Non-Af Amer) 48 L BUN/Creatinine Ratio 69.2 H ALT 16 L Total Protein 5.5 L Urine Blood 25 H Stool Occult Blood Positive H 03/23/19 09:33 WBC 22.5 H RBC 2.70 L Hgb 8.5 L Hct 26.5 L MCH 31.5 H RDW 14.1 H Lymphocytes % (Manual) 52 H Neutrophils # (Manual) 9.9 H Lymphocytes # (Manual) 11.7 H Carbon Dioxide Anion Gap BUN Est GFR (Non-Af Amer) BUN/Creatinine Ratio ALT Total Protein Urine Blood Stool Occult Blood left bi-malleolar fracture - Assessments/Findings (1) Acute blood loss anemia Problem: Acute (2) GERD (gastroesophageal reflux disease) Problem: Chronic Qualifiers: Esophagitis presence: esophagitis presence not specified Qualified Code(s): K21.9 - Gastro-esophageal reflux disease without esophagitis (3) GI bleed Diagnosis(s): Probably UGI in light of proir GERD and elevated BUN. Explained rationale of EGD to determmine souce (gastritis vs ulcer) to guide therapy. Risks explained and questions answered. Informed consent for EGD obtained. Problem: Acute Qualifiers: GI bleed type/associated pathology: unspecified gastrointestinal hemorrhage type Qualified Code(s): K92.2 - Gastrointestinal hemorrhage, unspecified
--- NOTE | 2019-03-23 15:50 | HP ---
Chief Complaint - Chief Complaint Date of Service: 03/23/19 Time of Service: 15:00 Chief Complaint: GI bleeding, orthostasis with fall, bimalleolar fracture of left ankle secondary to fall, CLL, and status post radiation treatment of melanoma on her face. Dehydration and diarrhea History of Present Illness: Mrs. Aguero is a 78-year-old female patient presented the emergency room after a fall at home. She had gone to the bathroom and had diarrhea and then when she stood up she had an orthostatic syncopal event and fell and broke her left ankle. She was brought to the hospital and found to be hypotensive on arrival with systolic in the mid 60s. She was given IV fluid bolus of about 2- 1/2 L of fluid to stabilize her blood pressure and her orthostasis is resolved. She is having a lot of malodorous watery diarrhea that is Hemoccult positive. C. difficile screening and cultures are yet to be collected. She has a history of celiac disease and a history of lactose intolerance. Dr. Gilmore has seen her today and is planning to take her for upper endoscopy this afternoon. Medical History (Updated 03/23/19 @ 14:08 by Shamika Reyes MD) Essential Hypertension (Chronic) Chemo Therapy (Resolved) Onset Date: ~2011 Skin cancer (Resolved) Onset Date: ~2012 Chest is squamous cell and under bra basal cell. Sev pre-cancerous areas all over back. Uses 5FU (chemo) topically on her face. 2012 Osteopenia (Chronic) Onset Date: 05/04/14 Osteoarthritis (Chronic) Onset Date: 09/27/11 HTN (hypertension) (Chronic) Onset Date: 09/27/11 Hyperlipidemia (Chronic) Onset Date: 09/14/16 GERD (gastroesophageal reflux disease) (Chronic) Onset Date: 05/13/13 Cardiomyopathy (Chronic) Onset Date: Unknown CAD (coronary artery disease) (Chronic) Onset Date: Unknown Anxiety and depression (Chronic) Onset Date: 09/09/14 Rash and nonspecific skin eruption (Acute) CKD (chronic kidney disease) stage 3, GFR 30-59 ml/min (Chronic) Dizziness (Acute) Dehydration (Acute) Hypotension (Acute) CLL (chronic lymphocytic leukemia) (Chronic) MONSERRAT (acute kidney injury) (Acute) Constipation (Acute) Chest wall pain (Acute) Chronic kidney disease (CKD) (Chronic) Onset Date: Unknown Celiac disease (Chronic) Onset Date: ~2001 CLL (chronic lymphocytic leukemia) (Chronic) Onset Date: ~2004 History of [place] (myocardial infarction) Onset Date: Unknown History of echocardiogram Onset Date: Unknown Melanoma Onset Date: ~08/2018 lower lip Surgical History: Surgical History (Updated 11/06/18 @ 09:56 by Serena Polanco [facility]) History of bilateral carpal tunnel release Onset Date: ~12/2014 Right hand 1999, left hand 12/2014 History of excision of lesion Onset Date: ~2014 Squamous cell cancer removal off Lt side of chest, Basal cell removed substernal. History of stress test Onset Date: 06/09/16 Abnormally low EF of 37% Hx of cardiac catheterization Onset Date: ~08/2016 Dr. Calix Hx of cholecystectomy Onset Date: ~1995 Hx of colonoscopy Onset Date: ~12/2010 Celiac disease, no polyps Hx of tonsillectomy Onset Date: ~1947 Mohs micrographic surgery of neck Onset Date: 08/21/14 [facility] [place], [place] Family History: Family History (Updated 03/09/18 @ 06:17 by Myrna Sarmiento) Father , Age 89 Leukemia Heart disease Cancer Skin Mother , Age 89 Dementia Kidney failure Grandmother , (Paternal) Cancer Poss abdominal, mastectomy Grandfather , (Maternal) Diverticulosis Daughter Thyroid disease Bi-polar Celiac disease Other Father quadruple bypass Social History: (Last Reviewed 03/23/19 @ 09:08 by Lalita Luu RN) Social History: Marital status: household members: spouse current occupational status: retired Service: No Tobacco: Smoking Status: Never smoker Alcohol: alcohol intake: current alcohol intake frequency: a few times a month details: Some day - 1/wk - occasional social - wine Substance Use: substance use type: does not use Dietary Habits: caffeine: No caffeine comment: Former Review Of Systems (GEN) - Review of Systems Generalized/Overall Review: Present: Weakness, Fatigue EENTM: Present: No Symptoms Reported Respiratory: Present: No Symptoms Reported Cardiac: Present: No Symptoms Reported Abdominal: Present: Diarrhea, Melena Genitourinary: Present: No Symptoms Reported Musculoskeletal: Present: Joint Pain - Bimalleolar fracture left ankle Neurological: Present: No Symptoms Reported Skin: Present: No Symptoms Reported, Other - Healing lesion on the face from recent treatment of a melanoma Endocrine: Present: No Symptoms Reported Misc: All systems neg except as marked Immunizations: IMMUNIZATION HX Immunizations Up to Date Yes History of Influenza Vaccine Yes Hx Pneumococcal Vaccination Yes Allergies/Adverse Reactions: Allergies Allergy/AdvReac Type Severity Reaction Status Date / Time alendronate sodium Allergy Unknown Throat Verified 03/23/19 09:08 [From Fosamax] irritation allopurinol Allergy Unknown Rash Verified 03/23/19 09:08 doxycycline Allergy Unknown Swelling Verified 03/23/19 09:08 meloxicam Allergy Unknown Eyes, Verified 03/23/19 09:08 lips, ears swollen fructose AdvReac Unknown Gas/GI Verified 03/23/19 09:08 upset gluten AdvReac Unknown abdominal Verified 03/23/19 09:08 cramping lactose AdvReac Unknown GI upset Verified 03/23/19 09:08 lisinopril AdvReac Unknown Cough Verified 03/23/19 09:08 sertraline [From Zoloft] AdvReac Unknown Nausea, Verified 03/23/19 09:08 headache Home Medications: HOME MEDICATIONS Lactobacillus Rhamnosus GG [Culturelle] 1 ea PO DAILY 01/19/14 [Last Taken Unknown] Multivit-Min/FA/Lycopen/Lutein [Centrum Silver Tablet] 1 ea PO DAILY 11/17/16 [Last Taken Unknown] famotidine 40 mg tablet 40 mg PO BIDAC #180 tab 01/15/18 [Last Taken Unknown] B-complex with vitamin C tablet 1 tab PO DAILY 03/23/18 [Last Taken Unknown] acyclovir 400 mg tablet 400 mg PO .prn tab 03/23/18 [Last Taken Unknown] furosemide 20 mg tablet 20 mg PO .1QW PRN tab 05/09/18 [Last Taken Unknown] simethicone 125 mg capsule 125 mg PO DAILY PRN 05/09/18 [Last Taken Unknown] ooymuyc-mddrtckrgclqs-tcqabaoi 250 mg-250 mg-65 mg tablet See Rx Instructions PO Q6H PRN 05/29/18 [Last Taken Unknown] losartan 25 mg tablet 25 mg PO DAILY #90 tab 06/20/18 [Last Taken Unknown] zolpidem 5 mg tablet 5 mg PO HS PRN #90 tab 06/20/18 [Last Taken Unknown] atorvastatin 40 mg tablet 40 mg PO DAILY #90 tab 09/26/18 [Last Taken Unknown] metoprolol succinate ER 50 mg tablet,extended release 24 hr 50 mg PO DAILY #90 tab 09/26/18 [Last Taken Unknown] spironolactone 25 mg tablet 12.5 mg PO .Mon, Wed, Fri #12 tab 12/11/18 [Last Taken Unknown] diphenoxylate-atropine 2.5 mg-0.025 mg tablet 1 tab PO Q6H PRN #30 tab 12/21/18 [Last Taken Unknown] venlafaxine ER 75 mg capsule,extended release 24 hr 75 mg PO DAILY #90 cap 01/07/19 [Last Taken Unknown] Exam - Exam Vital Signs: Vital Signs - Last Taken Temp 35.7 C L 03/23/19 09:04 Pulse 80 03/23/19 14:23 Resp 12 03/23/19 14:23 BP 106/49 03/23/19 14:23 Pulse Ox 98 03/23/19 14:23 Constitutional: Present: Alert, Oriented x3, Cooperative, Well developed, Well nourished, No distress ENT Exam: Present: normal ENT inspection, hearing grossly normal, pharynx normal Eye Exam: bilateral eye: normal inspection, PERRL, EOMI Neck: Present: non-tender, full range of motion, supple Back Exam: Present: normal inspection Breasts: Present: Exam deferred Respiratory: Present: chest non-tender, lungs clear, normal breath sounds, no respiratory distress Cardiovascular/Chest: Present: normal peripheral pulses, regular rate, rhythm, no chest tenderness, no edema, no gallop, no JVD, no murmur, no rub Peripheral Pulses: carotid (R): 2+, carotid (L): 2+, radial (R): 2+, radial (L): 2+ Abdomen: Present: soft. Absent: hypoactive /Rectal: Present: Exam deferred Extremity: Present: normal range of motion, non-tender, normal inspection, no pedal edema, no calf tenderness, other - The left ankle and foot are in a posterior splint Skin Exam: Present: normal color, warm/dry, no cyanosis Lymphatic: Present: no adenopathy Neurologic: Present: sewer hand II-XII nml as tested, alert, normal mood/affect, oriented x 3 Appearance: Present: appropriate appearance, appropriate insight, neat, no m andi impairment Eye contact: Present: cooperative, good eye contact, normal speech Thoughts: Present: normal thought pattern, no apparent hallucination Diagnostic Studies: Abnormal Lab Results 03/23/19 03/23/19 03/23/19 Range/Units 09:33 09:33 11:55 WBC 22.5 H (4.0-10.5) K/mm3 RBC 2.70 L (4.2-5.4) M/mm3 Hgb 8.5 L (12.5-16.0) gm/dL Hct 26.5 L (37.0-47.0) % MCH 31.5 H (27-31) pg RDW 14.1 H (11.5-14.0) % Lymphocytes % (Manual) 52 H (20-51) % Neutrophils # (Manual) 9.9 H (1.3-6.0) K/mm3 Lymphocytes # (Manual) 11.7 H (1.5-3.5) k/mm3 Carbon Dioxide 23.6 L (24-32.6) mmol/L Anion Gap 15.5 H (6.8-13.8) mmol/L BUN 81 H D (3-23) mg/dL Est GFR (Non-Af Amer) 48 L (60-130) mL/min BUN/Creatinine Ratio 69.2 H (9.0-21.6) ALT 16 L (19-67) U/L Total Protein 5.5 L (6.2-8.2) gm/dL Urine Blood 25 H (NEGATIVE) /ul Stool Occult Blood 03/23/19 Range/Units 12:11 WBC (4.0-10.5) K/mm3 RBC (4.2-5.4) M/mm3 Hgb (12.5-16.0) gm/dL Hct (37.0-47.0) % MCH (27-31) pg RDW (11.5-14.0) % Lymphocytes % (Manual) (20-51) % Neutrophils # (Manual) (1.3-6.0) K/mm3 Lymphocytes # (Manual) (1.5-3.5) k/mm3 Carbon Dioxide (24-32.6) mmol/L Anion Gap (6.8-13.8) mmol/L BUN (3-23) mg/dL Est GFR (Non-Af Amer) (60-130) mL/min BUN/Creatinine Ratio (9.0-21.6) ALT (19-67) U/L Total Protein (6.2-8.2) gm/dL Urine Blood (NEGATIVE) /ul Stool Occult Blood Positive H Laboratory Results WBC 22.5 K/mm3 (4.0-10.5) H 03/23/19 09:33 RBC 2.70 M/mm3 (4.2-5.4) L 03/23/19 09:33 Hgb 8.5 gm/dL (12.5-16.0) L 03/23/19 09:33 Hct 26.5 % (37.0-47.0) L 03/23/19 09:33 MCV 98.1 fl (78-100) 03/23/19 09:33 MCH 31.5 pg (27-31) H 03/23/19 09:33 MCHC 32.1 g/dl (32-36) 03/23/19 09:33 RDW 14.1 % (11.5-14.0) H 03/23/19 09:33 Plt Count 173 K/mm3 (150-450) 03/23/19 09:33 MPV 8.8 fl (8-12.5) 03/23/19 09:33 44 % (42-75) 03/23/19 09:33 Band Neuts % (Manual) 1 % (0-2.0) 03/23/19 09:33 52 % (20-51) H 03/23/19 09:33 3 % (0-9) 03/23/19 09:33 9.9 K/mm3 (1.3-6.0) H 03/23/19 09:33 11.7 k/mm3 (1.5-3.5) H 03/23/19 09:33 0.7 k/mm3 (0.0-1.0) 03/23/19 09:33 Normal (NORMAL) 03/23/19 09:33 RBC Morphology Normal (NORMAL) 03/23/19 09:33 Sodium 140 mmol/L (132-142) 03/23/19 09:33 140 mmol/L (130-142) 03/23/19 09:33 Potassium 4.1 mmol/L (3.4-4.6) 03/23/19 09:33 Chloride 105 mmol/L (97-106) 03/23/19 09:33 Carbon Dioxide 23.6 mmol/L (24-32.6) L 03/23/19 09:33 15.5 mmol/L (6.8-13.8) H 03/23/19 09:33 BUN 81 mg/dL (3-23) H D 03/23/19 09:33 1.17 mg/dL (0.4-1.4) 03/23/19 09:33 Est GFR (Non-Af Amer) 48 mL/min (60-130) L 03/23/19 09:33 69.2 (9.0-21.6) H 03/23/19 09:33 105 mg/dL (70-110) 03/23/19 09:33 1.5 mmol/L (0.4-2.0) 03/23/19 09:33 Calcium 8.6 mg/dL (7.9-10.9) 03/23/19 09:33 Calcium Adj for Albumin 8.8 mg/dL (8.4-10.2) 03/23/19 09:33 0.4 mg/dL (0.0-1.1) 03/23/19 09:33 AST 18 U/L (0-48) 03/23/19 09:33 ALT 16 U/L (19-67) L 03/23/19 09:33 52 U/L (50-170) 03/23/19 09:33 0.031 ng/mL (0.00-0.10) 03/23/19 09:33 B-Natriuretic Peptide 261 pg/mL (5-550) 03/23/19 09:33 5.5 gm/dL (6.2-8.2) L 03/23/19 09:33 3.4 gm/dl (3.4-5.0) 03/23/19 09:33 Yellow 03/23/19 11:55 Clear (CLEAR) 03/23/19 11:55 5.5 pH (5.0-7.0) 03/23/19 11:55 Ur Specific [place] 1.010 SP.GR. (1.005-1.010) 03/23/19 11:55 Negative mg/dL (NEGATIVE) 03/23/19 11:55 Negative mg/dL (NEGATIVE) 03/23/19 11:55 Negative mg/dL (NEGATIVE) 03/23/19 11:55 25 /ul (NEGATIVE) H 03/23/19 11:55 Negative (NEGATIVE) 03/23/19 11:55 Negative mg/dl (NEGATIVE) 03/23/19 11:55 Normal EU/dl (NORMAL) 03/23/19 11:55 Ur Leukocyte Esterase Negative /ul (NEGATIVE) 03/23/19 11:55 0-5 /hpf (0-5) 03/23/19 11:55 0-5 /hpf (0-5) 03/23/19 11:55 Ur Epithelial Cells 0-5 /hpf (0-5) 03/23/19 11:55 None seen (NONE) 03/23/19 11:55 No culture indicated 03/23/19 11:55 Positive H 03/23/19 12:11 Influenza Type A Ag Negative (NEGATIVE) 03/23/19 11:55 Influenza Type B Ag Negative (NEGATIVE) 03/23/19 11:55 Assessment/Plan - Narrative Narrative: 1. Proceed with upper endoscopy is planned 2. Orthopedic consult for management of her ankle fracture 3. Continue IV fluid rehydration 4. N.p.o. until after upper endoscopy 5. Start gluten and lactose-free consistent carb diet after surgery 6. Analyzed stool for culture sensitivity and C. difficile. - Assessment/Plan (1) Acute blood loss anemia Problem: Acute (2) Closed bimalleolar fracture of left ankle Problem: Acute Qualifiers: Encounter type: initial encounter Qualified Code(s): S82.842A - Displaced bimalleolar fracture of left lower leg, initial encounter for closed fracture (3) Malignant melanoma of skin of lower lip Problem: Acute (4) CKD (chronic kidney disease) stage 3, GFR 30-59 ml/min Problem: Chronic (5) CLL (chronic lymphocytic leukemia) Problem: Chronic (6) Celiac disease Problem: Chronic (7) Dehydration Problem: Resolved
--- NOTE | 2019-03-23 15:52 | ANES ---
Anesthesia Pre Procedure Eval Vitals/Labs: Last Vital Signs Temp 35.7 C L 03/23/19 09:04 Pulse 80 03/23/19 14:23 Resp 12 03/23/19 14:23 BP 106/49 03/23/19 14:23 Pulse Ox 98 03/23/19 14:23 HOME MEDICATIONS Lactobacillus Rhamnosus GG [Culturelle] 1 ea PO DAILY 01/19/14 [Last Taken Unknown] Multivit-Min/FA/Lycopen/Lutein [Centrum Silver Tablet] 1 ea PO DAILY 11/17/16 [Last Taken Unknown] famotidine 40 mg tablet 40 mg PO BIDAC #180 tab 01/15/18 [Last Taken Unknown] B-complex with vitamin C tablet 1 tab PO DAILY 03/23/18 [Last Taken Unknown] acyclovir 400 mg tablet 400 mg PO .prn tab 03/23/18 [Last Taken Unknown] furosemide 20 mg tablet 20 mg PO .1QW PRN tab 05/09/18 [Last Taken Unknown] simethicone 125 mg capsule 125 mg PO DAILY PRN 05/09/18 [Last Taken Unknown] kodbubg-msrsvnfhdpuuh-tczlrldw 250 mg-250 mg-65 mg tablet See Rx Instructions PO Q6H PRN 05/29/18 [Last Taken Unknown] losartan 25 mg tablet 25 mg PO DAILY #90 tab 06/20/18 [Last Taken Unknown] zolpidem 5 mg tablet 5 mg PO HS PRN #90 tab 06/20/18 [Last Taken Unknown] atorvastatin 40 mg tablet 40 mg PO DAILY #90 tab 09/26/18 [Last Taken Unknown] metoprolol succinate ER 50 mg tablet,extended release 24 hr 50 mg PO DAILY #90 tab 09/26/18 [Last Taken Unknown] spironolactone 25 mg tablet 12.5 mg PO .Mon, Wed, Fri #12 tab 12/11/18 [Last Taken Unknown] diphenoxylate-atropine 2.5 mg-0.025 mg tablet 1 tab PO Q6H PRN #30 tab 12/21/18 [Last Taken Unknown] venlafaxine ER 75 mg capsule,extended release 24 hr 75 mg PO DAILY #90 cap 01/07/19 [Last Taken Unknown] Allergies/Adverse Reactions: Allergies Allergy/AdvReac Type Severity Reaction Status Date / Time alendronate sodium Allergy Unknown Throat Verified 03/23/19 09:08 [From Fosamax] irritation allopurinol Allergy Unknown Rash Verified 03/23/19 09:08 doxycycline Allergy Unknown Swelling Verified 03/23/19 09:08 meloxicam Allergy Unknown Eyes, Verified 03/23/19 09:08 lips, ears swollen fructose AdvReac Unknown Gas/GI Verified 03/23/19 09:08 upset gluten AdvReac Unknown abdominal Verified 03/23/19 09:08 cramping lactose AdvReac Unknown GI upset Verified 03/23/19 09:08 lisinopril AdvReac Unknown Cough Verified 03/23/19 09:08 sertraline [From Zoloft] AdvReac Unknown Nausea, Verified 03/23/19 09:08 headache - Planned Procedure Planned Procedure: EGD Medication List Reviewed:: Yes Allergies Verified: Yes Medical History (Updated 03/23/19 @ 15:50 by Berhane Anton DO) Essential Hypertension (Chronic) Chemo Therapy (Resolved) Onset Date: ~2011 Skin cancer (Resolved) Onset Date: ~2012 Chest is squamous cell and under bra basal cell. Sev pre-cancerous areas all over back. Uses 5FU (chemo) topically on her face. 2012 Osteopenia (Chronic) Onset Date: 05/04/14 Osteoarthritis (Chronic) Onset Date: 09/27/11 HTN (hypertension) (Chronic) Onset Date: 09/27/11 Hyperlipidemia (Chronic) Onset Date: 09/14/16 GERD (gastroesophageal reflux disease) (Chronic) Onset Date: 05/13/13 Cardiomyopathy (Chronic) Onset Date: Unknown CAD (coronary artery disease) (Chronic) Onset Date: Unknown Anxiety and depression (Chronic) Onset Date: 09/09/14 Rash and nonspecific skin eruption (Acute) CKD (chronic kidney disease) stage 3, GFR 30-59 ml/min (Chronic) Dizziness (Acute) Dehydration (Resolved) Hypotension (Acute) CLL (chronic lymphocytic leukemia) (Chronic) MONSERRAT (acute kidney injury) (Acute) Constipation (Acute) Chest wall pain (Acute) Chronic kidney disease (CKD) (Chronic) Onset Date: Unknown Celiac disease (Chronic) Onset Date: ~2001 CLL (chronic lymphocytic leukemia) (Chronic) Onset Date: ~2004 History of [place] (myocardial infarction) Onset Date: Unknown History of echocardiogram Onset Date: Unknown Melanoma Onset Date: ~08/2018 lower lip Surgical History (Updated 03/23/19 @ 15:50 by Berhane Anton DO) History of bilateral carpal tunnel release Onset Date: ~12/2014 Right hand 1999, left hand 12/2014 History of excision of lesion Onset Date: ~2014 Squamous cell cancer removal off Lt side of chest, Basal cell removed substernal. History of stress test Onset Date: 06/09/16 Abnormally low EF of 37% Hx of cardiac catheterization Onset Date: ~08/2016 Dr. Calix Hx of cholecystectomy Onset Date: ~1995 Hx of colonoscopy Onset Date: ~12/2010 Celiac disease, no polyps Hx of tonsillectomy Onset Date: ~1947 Mohs micrographic surgery of neck Onset Date: 08/21/14 Upper left [facility] - [place], [place] Family History (Updated 03/09/18 @ 06:17 by Myrna Sarmiento) Father , Age 89 Leukemia Heart disease Cancer Skin Mother , Age 89 Dementia Kidney failure Grandmother , (Paternal) Cancer Poss abdominal, mastectomy Grandfather , (Maternal) Diverticulosis Daughter Thyroid disease Bi-polar Celiac disease Other Father quadruple bypass - Family Anesthesia History Family History:: no untoward family reactions to anesthesia, no familial bleeding tendencies, no family history of clotting disorders, no family history of premature - Airway/Neck/Teeth Within Normal Limits:: Yes Teeth Condition: intact Mallampatti Score: 2 Thyromental (T-M) distance: > 6 cm Mandibulo Hyoid distance: > 3 cm - Respiratory Respiratory Physical: lungs clear Smoking Status: Never smoker Discussed smoking cessation including day of surgery: No Sleep Apnea currently treated: No Sleep Apnea by current assessment: No Discussed Risks/Treatment of CY: No - Cardiovascular Tolerate Activity: Fair Heart Sounds: S1 & S2, Regular - Anesthesia Assessment and Plan ASA Class: PS, III, E Anesthesia Type Plan: MAC
[2019-03-23] MEDS ORDERED: RINGER'S SOLUTION,LACTATED 1,000 ML IV ONE (16:32)
--- NOTE | 2019-03-23 16:54 | ANES ---
Post Anesthesia Discharge - Transfer of Care Transfer of Care handoff given to nurse: Yes - Discharge from PACU Discharge from PACU when meets criteria: Yes - Discharge to ASU Discharge to ASU-no complications/pt stable: Yes
--- NOTE | 2019-03-23 16:55 | ANES ---
Post Anesthesia Assessment - Vital Signs Vitals: Last Vital Signs Temp 36.9 C 03/23/19 16:45 Pulse 75 03/23/19 16:45 Resp 16 03/23/19 16:45 BP 122/62 03/23/19 16:45 Pulse Ox 100 03/23/19 16:45 Airway Patency: Normal - Mental Status Level Of Consciousness: Awake - Pain Level Pain Score: 0 - N/V Assessment Nausea/Vomiting Presence: None Dehydration:: No
[2019-03-23] MEDS ORDERED: PANTOPRAZOLE SODIUM 40 MG in NORMAL SALINE 100 ML IV SCH (17:00)
[2019-03-23] MEDS ORDERED: FAMOTIDINE 20 MG TABLET PO SCH (17:00)
[2019-03-23] MEDS: oxyCODONE HCL/ACETAMINOPHEN 1 TAB TABLET PO PRN (18:09)
--- NOTE | 2019-03-23 18:29 | OR ---
Operative Report - Dictated Report Narrative: Operative Report Date of operation: 03/23/2019 Preoperative diagnosis: GI bleeding, anemia, GERD Postoperative diagnosis: Enterogastric bile reflux with gastropathy and superficial erosions (pathology and CLOtest pending) Operation: EGD with biopsies Surgeon: Dr Gilmore Anesthesia: KEVEN Galvez CRNA Indications for procedure: The patient is a 78-year-old female who had an orthostatic episode while in the bathroom earlier today, fell and sustained a bimalleolar left ankle fracture. She was found to be anemic and gives a history of GERD symptoms and sudden onset of black loose bowel movements. She also has a history of celiac disease and lactose intolerance. Findings: Enterogastric bile reflux with superficial erosions and gastropathy. Relatively normal-appearing duodenum (biopsy pending). Evidence of chronic low- grade bleeding from the stomach but no active bleeding site identified currently. Narrative of procedure: The patient was identified preoperatively, and prior to the administration of anesthetic a multidisciplinary timeout was observed With the patient in the recumbent position, a bite-block was placed, intravenous sedation administered, and the patient's eyes covered with a towel. The flexible fiberoptic gastroscope was advanced into the posterior pharynx which appeared normal. The supraglottic larynx appeared normal. The cords appeared normal, moved well, and opposed in the midline. The scope was advanced under direct vision into the proximal esophagus which appeared normal. The esophagus appeared freely distensible with normal mucosa. The esophageal mucosa appeared normal down to the gastroesophageal junction which was sharp and noninflamed. There was no evidence of varices or Junie-Mandujano tear. The GE junction appeared normally distensible. The scope was advanced into the stomach which was insufflated with air. There was a large amount of bile present. The gastric mucosa appeared erythematous with several very superficial healing antral erosions. A retroflexed view of the gastric fundus revealed no additional pathology. There was no evidence of hiatal hernia and the gastric side of the GE junction appeared normal. The scope was redirected toward the pylorus the pylorus appeared patent. The scope was advanced into the duodenal bulb which appeared normal. The scope was advanced further to the horizontal portion of the duodenum which appeared normal, specifically the villous architecture appeared well preserved and clear bile was present. A biopsy of used equipment sales representative duodenal mucosa was obtained for pathology. The biopsy site was seen to be hemostatic. The scope was slowly withdrawn through the duodenal bulb with confirmation that no active ulcer was present. The scope was withdrawn into the stomach and used equipment sales representative biopsies of gastric mucosa obtained for CLOtest and pathology. The biopsy sites were seen to be hemostatic. The insufflated air was removed, the scope withdrawn from the patient, and the procedure terminated. The patient tolerated the anesthetic and procedure well without complication and was transferred back to her room awake and in stable condition. I shared the operative findings with the patient and her , and she was given copies of the photographs which appear in the medical record. I made arrangements to contact the patient with the biopsy reports and will make further recommendation based upon that result. RECOMMENDATION: The patient may be fed. Would advise PPI and Carafate Reviewed and electronically signed
[2019-03-23] MEDS: ROSUVASTATIN CALCIUM 20 MG TABLET PO SCH (21:13)
[2019-03-23] MEDS: SUCRALFATE 1 G TABLET PO SCH (21:13)
[2019-03-23] MEDS: ZOLPIDEM TARTRATE 5 MG TABLET PO PRN (21:13)
[2019-03-24] MEDS: oxyCODONE HCL/ACETAMINOPHEN 1 TAB TABLET PO PRN ×3 (02:51→18:16)
[2019-03-24] MEDS: SUCRALFATE 1 G TABLET PO SCH ×4 (07:08→21:29)
[2019-03-24] MEDS ORDERED: VITAMIN B COMP W-C 1 TAB TABLET PO SCH (09:00)
[2019-03-24] MEDS ORDERED: MULTIVIT-MIN/FA/LYCOPEN/LUTEIN 1 TAB TABLET PO SCH (09:00)
[2019-03-24 09:37] LABS: Mean Corpuscular Hemoglobin 31.7 pg (27-31); Mean Corpuscular Hgb Conc 31.4 g/dl (32-36); Mean Platelet Volume 8.5 fl (8-12.5); Platelet Count 107 K/mm3 (150-450); Red Blood Count 2.02 M/mm3 (4.2-5.4); Red Cell Distribution Width 14.7 % (11.5-14.0); White Blood Count 12.7 K/mm3 (4.0-10.5)
[2019-03-24] MEDS: VENLAFAXINE HCL 37.5 MG CAP.SR.24H PO SCH (09:43)
[2019-03-24] MEDS: LACTOBACILLUS ACIDOPHILUS 1 EACH CAPSULE PO SCH (09:45)
[2019-03-24] MEDS: LOSARTAN POTASSIUM 50 MG TABLET PO SCH (09:45)
[2019-03-24 09:46] LABS: Anion Gap 13.1 mmol/L (6.8-13.8); BUN/Creatinine Ratio 29.4 (9.0-21.6); Carbon Dioxide 23.9 mmol/L (24-32.6); Estimated Creat Clear 30.6
[2019-03-24] MEDS: METOPROLOL SUCCINATE 50 MG TABLET.SA PO SCH (09:47)
[2019-03-24 09:50] LABS: Hemoglobin 6.4 gm/dL (12.5-16.0)
[2019-03-24 09:51] LABS: Hematocrit 20.4 % (37.0-47.0)
[2019-03-24 09:53] LABS: Total Cells Counted 100
[2019-03-24 10:16] LABS: Eosinophil 2 % (0-3); Lymphocyte 66 % (20-51); Neutrophil 32 % (42-75); Neutrophil # 4.1 K/mm3 (1.3-6.0); Platelet Estimate Decreased (NORMAL)
[2019-03-24] MEDS ORDERED: FUROSEMIDE 10 MG/ML VIAL IV ONE ×2 (10:16→20:00)
[2019-03-24 10:22] LABS: RBC Morphology Normal (NORMAL)
[2019-03-24] MEDS ORDERED: ceFAZolin SODIUM 1 GM VIAL IV PRN (10:22)
--- NOTE | 2019-03-24 10:36 | CONS ---
[facility] - General Date of Service: 03/24/19 Narrative: Mrs. Aguero sustained a ground-level fall at home when she became lightheaded. With this fall she sustained an injury to her left ankle and had obvious deformity. She was splinted by EMS and brought into our emergency department for evaluation and treatment. The emergency department physician did do a closed reduction and application of a sugar tong OCL with posterior splint. Due to the fact the patient was found to have a GI bleed and was anemic she was admitted for further evaluation and treatment of this. She has undergone an EGD was found to have significant gastritis but no active bleeding. Her GI bleed is what has been felt to cause her lightheadedness and dizziness resulting in her fall. She reports no other injuries besides the left ankle injury. Source: patient Exam Limitations: no limitations - History of Present Illness Allergies/Adverse Reactions: Allergies alendronate sodium [From Fosamax] Allergy (Unknown, Verified 03/23/19 09:08) Throat irritation allopurinol Allergy (Unknown, Verified 03/23/19 09:08) Rash doxycycline Allergy (Unknown, Verified 03/23/19 09:08) Swelling meloxicam Allergy (Unknown, Verified 03/23/19 09:08) Eyes, lips, ears swollen fructose Adverse Reaction (Unknown, Verified 03/23/19 09:08) Gas/GI upset gluten Adverse Reaction (Unknown, Verified 03/23/19 09:08) abdominal cramping diarrhea lactose Adverse Reaction (Unknown, Verified 03/23/19 09:08) GI upset lisinopril Adverse Reaction (Unknown, Verified 03/23/19 09:08) Cough sertraline [From Zoloft] Adverse Reaction (Unknown, Verified 03/23/19 09:08) Nausea, headache Home Medications: Home Medications Medication Instructions Recorded Last Taken Lactobacillus Rhamnosus GG 1 ea PO DAILY 01/19/14 Unknown [Culturelle] Multivit-Min/FA/Lycopen/Lutein 1 ea PO DAILY 11/17/16 Unknown [Centrum Silver Tablet] famotidine 40 mg tablet 40 mg PO BIDAC #180 tab 01/15/18 Unknown B-complex with vitamin C tablet 1 tab PO DAILY 03/23/18 Unknown acyclovir 400 mg tablet 400 mg PO .prn tab 03/23/18 Unknown furosemide 20 mg tablet 20 mg PO .1QW PRN tab 05/09/18 Unknown simethicone 125 mg capsule 125 mg PO DAILY PRN 05/09/18 Unknown frvevnl-vjnnloplgdyzb-quffelxd 250 See Rx Instructions PO Q6H PRN 05/29/18 Unknown mg-250 mg-65 mg tablet losartan 25 mg tablet 25 mg PO DAILY #90 tab 06/20/18 Unknown zolpidem 5 mg tablet 5 mg PO HS PRN #90 tab 06/20/18 Unknown atorvastatin 40 mg tablet 40 mg PO DAILY #90 tab 09/26/18 Unknown metoprolol succinate ER 50 mg 50 mg PO DAILY #90 tab 09/26/18 Unknown tablet,extended release 24 hr spironolactone 25 mg tablet 12.5 mg PO .Mon, Wed, Fri #12 tab 12/11/18 Unknown diphenoxylate-atropine 2.5 1 tab PO Q6H PRN #30 tab 12/21/18 Unknown mg-0.025 mg tablet venlafaxine ER 75 mg 75 mg PO DAILY #90 cap 01/07/19 Unknown capsule,extended release 24 hr Medications - Medications Current Medications: Current Medications Lactobacillus Acidophilus (Bacid) 1 each PO DAILY FRANCESCA Stop: 04/23/19 09:01 Last Admin: 03/24/19 09:45 Dose: 1 each Documented by: Losartan Potassium (Cozaar) 25 mg PO DAILY FRANCESCA Stop: 04/23/19 09:01 Last Admin: 03/24/19 09:45 Dose: 25 mg Documented by: Metoprolol Succinate (Toprol Xl) 50 mg PO DAILY FRANCESCA Stop: 04/23/19 09:01 Last Admin: 03/24/19 09:47 Dose: 50 mg Documented by: Oxycodone/Acetaminophen (Percocet 5 Mg/325 Mg) 1 tab PO Q4H PRN PRN Reason: Mild pain (pain scale 1-3) Stop: 04/22/19 17:29 Last Admin: 03/24/19 07:08 Dose: 1 tab Documented by: Rosuvastatin Calcium (Crestor) 20 mg PO HS FRANCESCA Stop: 04/22/19 21:01 Last Admin: 03/23/19 21:13 Dose: 20 mg Documented by: Sucralfate (Carafate) 1 g PO ACHS FRANCESCA Stop: 04/22/19 21:01 Last Admin: 03/24/19 07:08 Dose: 1 g Documented by: Venlafaxine HCl (Effexor Xr) 75 mg PO DAILY FRANCESCA Stop: 04/23/19 09:01 Last Admin: 03/24/19 09:43 Dose: 75 mg Documented by: Zolpidem Tartrate (Ambien) 5 mg PO HS PRN PRN Reason: Insomnia Stop: 04/22/19 15:16 Last Admin: 03/23/19 21:13 Dose: 5 mg Documented by: Review of Systems - Review of Systems Generalized/Overall Review: Present: Weakness, Fatigue EENTM: Present: No Symptoms Reported Abdominal: Present: Diarrhea, Other - Reports loss of appetite Musculoskeletal: Present: Other - No other musculoskeletal complaints Physical Examination - Exam Narrative: Left ankle is currently in a sugar tong and posterior splint. She has moderate swelling in her left foot. With evaluating the skin integrity her skin does wrinkle on the dorsum of her foot with pinching. She reports sensation intact to light touch in her left foot. She is able to wiggle her toes. She has 2+ do rsalis pedis pulse. Pre-and post reduction films reveal a bimalleolar ankle fracture. The emergency department physician did get an adequate reduction of the fracture. Vital Signs: Vital Signs - Last Taken Temp 36.7 C 03/24/19 07:15 Pulse 75 03/24/19 09:47 Resp 18 03/24/19 07:15 BP 135/67 03/24/19 09:47 Pulse Ox 97 03/24/19 07:15 O2 Oxygen Delivery Method Room Air - Results and Findings: Lab/Microbiology results last 24 hrs: Abnormal/Pending Laboratory Last 24 HRS 03/24/19 03/24/19 03/23/19 09:32 09:32 14:30 WBC 12.7 H D RBC 2.02 L Hgb 6.4 L* D Hct 20.4 L* D MCV 101.0 H MCH 31.7 H MCHC 31.4 L RDW 14.7 H Plt Count 107 L Neutrophils % (Manual) 32 L Lymphocytes % (Manual) 66 H Neutrophils # (Manual) Lymphocytes # (Manual) 8.4 H Platelet Estimate Decreased L Sodium 143 H Plasma Sodium 144 H Chloride 110 H Carbon Dioxide 23.9 L BUN 32 H D Est GFR (Non-Af Amer) 52 L BUN/Creatinine Ratio 29.4 H Random Glucose 179 H D Urine Blood Stool Occult Blood Crossmatch See Detail 03/23/19 03/23/19 03/23/19 12:11 11:55 09:33 WBC RBC Hgb Hct MCV MCH MCHC RDW Plt Count Neutrophils % (Manual) Lymphocytes % (Manual) 52 H Neutrophils # (Manual) 9.9 H Lymphocytes # (Manual) 11.7 H Platelet Estimate Sodium Plasma Sodium Chloride Carbon Dioxide BUN Est GFR (Non-Af Amer) BUN/Creatinine Ratio Random Glucose Urine Blood 25 H Stool Occult Blood Positive H Crossmatch Culture 03/23/19 16:46 CLOtest - Final Biopsy - Assessments/Findings (1) Bimalleolar fracture of left ankle Diagnosis(s): Pending medical plan is to proceed with open reduction and internal fixation of bimalleolar ankle fracture. Risk discussed in detail with patient as well as her . She is going to get blood transfusion today and her hemoglobin rechecked tomorrow. Pending this is stable we will plan to proceed with this tomorrow. She will be n.p.o. after light breakfast early in the morning. She will get Ancef IV preoperatively. Postoperative recovery discussed with patient and her as well today. Problem: Acute
[2019-03-24] MEDS ORDERED: ONDANSETRON 8 MG TAB.RAPDIS PO PRN (12:52)
[2019-03-24] MEDS: PROCHLORPERAZINE MALEATE 10 MG TABLET PO PRN ×2 (16:24→23:05)
--- NOTE | 2019-03-24 17:17 | PN ---
Subjective - Date and Time Seen Date: 03/24/19 Time: 10:30 Subjective Narrative: Ronel is feeling weaker today and having more nausea and has vomited once. Etiology of that is uncertain. Today's lab shows the hemoglobin down to 6.4 g with hematocrit of 20.5%. The wh ite count is also down to 12,700 (from 22,000). Platelets have dropped to 107,000. The BUN has dropped to 32 (down from 81) and EGFR has improved to 52 (up from 48). Her color is pale. Her left foot and ankle are in a posterior splint. Orthopedics has seen her this morning and plans to do an ORIF of the ankle fractures tomorrow morning. Objective - Review of Systems Generalized/Overall Review: Reports: Weakness, Malaise EENTM: Reports: No Symptoms Reported Respiratory: Reports: No Symptoms Reported Cardiac: Reports: No Symptoms Reported Abdominal: Reports: Nausea, Vomiting Genitourinary Symptoms: Reports: No Symptoms Reported Musculoskeletal Complaints: Reports: No Symptoms Reported Neurological: Reports: Weakness Skin: Reports: No Symptoms Reported Endocrine: Reports: No Symptoms Reported - Vitals Vitals: Last Vital Signs Temp 37.1 C 03/24/19 16:00 Pulse 72 03/24/19 16:00 Resp 20 03/24/19 16:00 BP 154/58 H 03/24/19 16:00 Pulse Ox 98 03/24/19 16:00 - Abnormal Lab Findings Abnormal Lab Findings: Abnormal Lab Results 03/23/19 03/24/19 03/24/19 Range/Units 14:30 09:32 09:32 WBC 12.7 H D (4.0-10.5) K/mm3 RBC 2.02 L (4.2-5.4) M/mm3 Hgb 6.4 L* D (12.5-16.0) gm/dL Hct 20.4 L* D (37.0-47.0) % MCV 101.0 H (78-100) fl MCH 31.7 H (27-31) pg MCHC 31.4 L (32-36) g/dl RDW 14.7 H (11.5-14.0) % Plt Count 107 L (150-450) K/mm3 Neutrophils % (Manual) 32 L (42-75) % Lymphocytes % (Manual) 66 H (20-51) % Lymphocytes # (Manual) 8.4 H (1.5-3.5) k/mm3 Platelet Estimate Decreased L (NORMAL) Sodium 143 H (132-142) mmol/L Plasma Sodium 144 H (130-142) mmol/L Chloride 110 H (97-106) mmol/L Carbon Dioxide 23.9 L (24-32.6) mmol/L BUN 32 H D (3-23) mg/dL Est GFR (Non-Af Amer) 52 L (60-130) mL/min BUN/Creatinine Ratio 29.4 H (9.0-21.6) Random Glucose 179 H D (70-110) mg/dL Crossmatch See Detail - Exam Constitutional: Present: Alert, Oriented x3, Cooperative, Well developed, Well nourished, No distress ENT Exam: Present: normal ENT inspection, hearing grossly normal, pharynx normal, TMs normal Neck: Present: non-tender, full range of motion Respiratory: Present: chest non-tender, lungs clear, normal breath sounds, no respiratory distress, no accessory muscle use Cardiovascular/Chest: Present: normal peripheral pulses, regular rate, rhythm, no chest tenderness, no edema, no gallop, no JVD, no murmur, no rub Abdomen: Present: Normal bowel sounds, soft, nontender, nondistended, no rebound tenderness, no hepatospenomegaly, no masses /Rectal: Present: Exam deferred, External genitalia normal Extremity: Present: normal range of motion, non-tender, normal inspection, no pedal edema, no calf tenderness, normal capillary refill Skin Exam: Present: warm/dry, no cyanosis, pallor Lymphatic: Present: no adenopathy Neurologic: Present: 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 Type and crossmatch 4 units of packed red blood cells 2. Give 20 mg of furosemide after the second dose is infused 3. Check hemoglobin and hematocrit 2 hours after the fourth unit is infused 4. Keep 2 units of packed red blood cells ahead 5. Repeat morning lab. 6. Anticipate ORIF of left ankle fractures tomorrow. 7. Add Compazine 10 mg 1 p.o. every 6 hours as needed nausea. 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
[2019-03-24] MEDS: PANTOPRAZOLE SODIUM 20 MG TABLET.DR PO SCH (21:29)
[2019-03-24] MEDS: ROSUVASTATIN CALCIUM 20 MG TABLET PO SCH (21:29)
[2019-03-25] MEDS: oxyCODONE HCL/ACETAMINOPHEN 1 TAB TABLET PO PRN ×3 (05:30→22:48)
[2019-03-25 05:55] LABS: Hematocrit 42.3 % (37.0-47.0); Hemoglobin 13.9 gm/dL (12.5-16.0)
[2019-03-25] MEDS: SUCRALFATE 1 G TABLET PO SCH ×5 (06:40→20:56)
[2019-03-25] MEDS: PANTOPRAZOLE SODIUM 20 MG TABLET.DR PO SCH ×2 (07:07→20:58)
[2019-03-25] MEDS: LACTOBACILLUS ACIDOPHILUS 1 EACH CAPSULE PO SCH (08:48)
[2019-03-25] MEDS: LOSARTAN POTASSIUM 50 MG TABLET PO SCH (08:48)
[2019-03-25] MEDS: VENLAFAXINE HCL 37.5 MG CAP.SR.24H PO SCH (08:48)
--- NOTE | 2019-03-25 09:04 | PN ---
Subjective - Date and Time Seen Date: 03/25/19 Time: 08:36 Subjective Narrative: She c/o dry mouth. She also complained of pain in her left lower extremity which improved with Percocet. She did not have any bowel movements today and states her last episode of diarrhea was yesterday. She denies shortness of breath, chest pain or abdominal pain. Objective - Review of Systems Generalized/Overall Review: Denies: Chills, Fever Respiratory: Denies: Shortness of Breath Cardiac: Denies: Chest Pain Abdominal: Denies: Abdominal Pain, Diarrhea Musculoskeletal Complaints: Reports: Joint Pain - left ankle Misc: All systems neg except as marked - Vitals Vitals: Last Vital Signs Temp 36.7 C 03/25/19 06:46 Pulse 71 03/25/19 08:48 Resp 12 03/25/19 06:46 BP 125/70 03/25/19 08:48 Pulse Ox 96 03/25/19 06:46 - Abnormal Lab Findings Abnormal Lab Findings: Abnormal Lab Results 03/23/19 03/24/19 03/24/19 Range/Units 14:30 09:32 09:32 WBC 12.7 H D (4.0-10.5) K/mm3 RBC 2.02 L (4.2-5.4) M/mm3 Hgb 6.4 L* D (12.5-16.0) gm/dL Hct 20.4 L* D (37.0-47.0) % MCV 101.0 H (78-100) fl MCH 31.7 H (27-31) pg MCHC 31.4 L (32-36) g/dl RDW 14.7 H (11.5-14.0) % Plt Count 107 L (150-450) K/mm3 Neutrophils % (Manual) 32 L (42-75) % Lymphocytes % (Manual) 66 H (20-51) % Lymphocytes # (Manual) 8.4 H (1.5-3.5) k/mm3 Platelet Estimate Decreased L (NORMAL) Sodium 143 H (132-142) mmol/L Plasma Sodium 144 H (130-142) mmol/L Chloride 110 H (97-106) mmol/L Carbon Dioxide 23.9 L (24-32.6) mmol/L BUN 32 H D (3-23) mg/dL Est GFR (Non-Af Amer) 52 L (60-130) mL/min BUN/Creatinine Ratio 29.4 H (9.0-21.6) Random Glucose 179 H D (70-110) mg/dL Crossmatch See Detail - Exam Constitutional: Present: Alert, Cooperative, Well developed, Well nourished, No distress, Elderly ENT Exam: Present: hearing grossly normal Neck: Present: non-tender, supple, trachea midline. Absent: lymphadenopathy (R), lymphadenopathy (L) Respiratory: Present: lungs clear, no accessory muscle use, No wheezing. Absent: crackles, rhonchi Abdomen: Present: Normal bowel sounds, soft, nontender, nondistended Extremity: Present: non-tender, lower extremity edema - left leg, other - Left lower extremity posterior splint in place. Skin Exam: Present: normal color, warm/dry Neurologic: Present: alert, normal mood/affect Appearance: Present: appropriate appearance, appropriate insight Eye contact: Present: cooperative Thoughts: Present: normal thought pattern, normal mood /affect Assessment/Plan Plan Narrative: 79-year-old female with a past medical history of CKD 3, coronary artery disease, hypertension, GERD, hyperlipidemia, CLL, melanoma of the lower lip, osteoarthritis, osteopenia presents from home status post fall. She was found to have a left ankle fracture, hypotension, GI bleed. She was found to have a bimalleolar fracture of the left lower extremity, orthopedics was consulted and will take her to the operating room this afternoon, March 25, 2019. She also was found to be anemic with a significant drop in her baseline hemoglobin from 12.4-8.5. She received 4 units of packed red blood cells with good response. Her hemoglobin improved to 13.9. Surgery was consulted and Dr. Gilmore performed. Endoscopy was positive for enterogastric bile reflux with gastropathy and superficial erosions. She was started on PPI and Carafate. 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 transplanted heart: [place] heart Associated angina: with stable angina Qualified Code(s): I25.118 - Atherosclerotic heart disease of [place] coronary artery with other forms of angina pectoris (8) Anxiety and depression Problem: Chronic (9) Hypotension Problem: Resolved Qualifiers: Hypotension type: hypotension due to hypovolemia Qualified Code(s): I95.89 - Other hypotension; E86.1 - Hypovolemia
[2019-03-25] MEDS: METOPROLOL SUCCINATE 50 MG TABLET.SA PO SCH (09:57)
[2019-03-25] MEDS: ACYCLOVIR 200 MG CAPSULE PO SCH (09:59)
--- NOTE | 2019-03-25 10:15 | PREOP NOTE ---
Preoperative Progress Note - Preoperative Changes Changes to Preop Condition?: No Changes
--- NOTE | 2019-03-25 12:55 | ANES ---
Anesthesia Pre Procedure Eval Vitals/Labs: Last Vital Signs Temp 36.8 C 03/25/19 11:10 Pulse 69 03/25/19 11:10 Resp 12 03/25/19 11:10 BP 135/63 03/25/19 11:10 Pulse Ox 96 03/25/19 11:10 HOME MEDICATIONS Lactobacillus Rhamnosus GG [Culturelle] 1 ea PO DAILY 01/19/14 [Last Taken Unknown] Multivit-Min/FA/Lycopen/Lutein [Centrum Silver Tablet] 1 ea PO DAILY 11/17/16 [Last Taken Unknown] famotidine 40 mg tablet 40 mg PO BIDAC #180 tab 01/15/18 [Last Taken Unknown] B-complex with vitamin C tablet 1 tab PO DAILY 03/23/18 [Last Taken Unknown] acyclovir 400 mg tablet 400 mg PO .prn tab 03/23/18 [Last Taken Unknown] furosemide 20 mg tablet 20 mg PO .1QW PRN tab 05/09/18 [Last Taken Unknown] simethicone 125 mg capsule 125 mg PO DAILY PRN 05/09/18 [Last Taken Unknown] lntxbzk-wgcyeyixjcqin-nvxjkzfl 250 mg-250 mg-65 mg tablet See Rx Instructions PO Q6H PRN 05/29/18 [Last Taken Unknown] losartan 25 mg tablet 25 mg PO DAILY #90 tab 06/20/18 [Last Taken Unknown] zolpidem 5 mg tablet 5 mg PO HS PRN #90 tab 06/20/18 [Last Taken Unknown] atorvastatin 40 mg tablet 40 mg PO DAILY #90 tab 09/26/18 [Last Taken Unknown] metoprolol succinate ER 50 mg tablet,extended release 24 hr 50 mg PO DAILY #90 tab 09/26/18 [Last Taken Unknown] spironolactone 25 mg tablet 12.5 mg PO .Mon, Wed, Fri #12 tab 12/11/18 [Last Taken Unknown] diphenoxylate-atropine 2.5 mg-0.025 mg tablet 1 tab PO Q6H PRN #30 tab 12/21/18 [Last Taken Unknown] venlafaxine ER 75 mg capsule,extended release 24 hr 75 mg PO DAILY #90 cap 01/07/19 [Last Taken Unknown] Allergies/Adverse Reactions: Allergies Allergy/AdvReac Type Severity Reaction Status Date / Time alendronate sodium Allergy Unknown Throat Verified 03/23/19 09:08 [From Fosamax] irritation allopurinol Allergy Unknown Rash Verified 03/23/19 09:08 doxycycline Allergy Unknown Swelling Verified 03/23/19 09:08 meloxicam Allergy Unknown Eyes, Verified 03/23/19 09:08 lips, ears swollen fructose AdvReac Unknown Gas/GI Verified 03/23/19 09:08 upset gluten AdvReac Unknown abdominal Verified 03/23/19 09:08 cramping lactose AdvReac Unknown GI upset Verified 03/23/19 09:08 lisinopril AdvReac Unknown Cough Verified 03/23/19 09:08 sertraline [From Zoloft] AdvReac Unknown Nausea, Verified 03/23/19 09:08 headache - Planned Procedure Planned Procedure: ORIF left ankle Medication List Reviewed:: Yes Allergies Verified: Yes Medical History (Updated 03/25/19 @ 09:14 by Tasia Jo MD) Essential Hypertension (Chronic) Chemo Therapy (Resolved) Onset Date: ~2011 Skin cancer (Resolved) Onset Date: ~2012 Chest is squamous cell and under bra basal cell. Sev pre-cancerous areas all over back. Uses 5FU (chemo) topically on her face. 2012 Osteopenia (Chronic) Onset Date: 05/04/14 Osteoarthritis (Chronic) Onset Date: 09/27/11 HTN (hypertension) (Chronic) Onset Date: 09/27/11 Hyperlipidemia (Chronic) Onset Date: 09/14/16 GERD (gastroesophageal reflux disease) (Chronic) Onset Date: 05/13/13 Cardiomyopathy (Chronic) Onset Date: Unknown CAD (coronary artery disease) (Chronic) Onset Date: Unknown Anxiety and depression (Chronic) Onset Date: 09/09/14 Rash and nonspecific skin eruption (Acute) CKD (chronic kidney disease) stage 3, GFR 30-59 ml/min (Chronic) Dizziness (Acute) Dehydration (Resolved) Hypotension (Resolved) CLL (chronic lymphocytic leukemia) (Chronic) [place]AT (acute kidney injury) (Acute) Constipation (Acute) Chest wall pain (Acute) Chronic kidney disease (CKD) (Chronic) Onset Date: Unknown Celiac disease (Chronic) Onset Date: ~2001 CLL (chronic lymphocytic leukemia) (Chronic) Onset Date: ~2004 History of RI (myocardial infarction) Onset Date: Unknown History of echocardiogram Onset Date: Unknown Melanoma Onset Date: ~08/2018 lower lip Surgical History (Updated 03/23/19 @ 15:50 by Berhane Anton DO) History of bilateral carpal tunnel release Onset Date: ~12/2014 Right hand 1999, left hand 12/2014 History of excision of lesion Onset Date: ~2014 Squamous cell cancer removal off Lt side of chest, Basal cell removed substernal. History of stress test Onset Date: 06/09/16 Abnormally low EF of 37% Hx of cardiac catheterization Onset Date: ~08/2016 Dr. Calix Hx of cholecystectomy Onset Date: ~1995 Hx of colonoscopy Onset Date: ~12/2010 Celiac disease, no polyps Hx of tonsillectomy Onset Date: ~1947 Mohs micrographic surgery of neck Onset Date: 08/21/14 Upper left [facility] - [place], [place] Family History (Updated 03/09/18 @ 06:17 by Myrna Sarmiento) Father , Age 89 Leukemia Heart disease Cancer Skin Mother , Age 89 Dementia Kidney failure Grandmother , (Paternal) Cancer Poss abdominal, mastectomy Grandfather , (Maternal) Diverticulosis Daughter Thyroid disease Bi-polar Celiac disease Other Father quadruple bypass - Family Anesthesia History Family History:: no untoward family reactions to anesthesia, no familial bleeding tendencies, no family history of clotting disorders, no family history of premature - Airway/Neck/Teeth Within Normal Limits:: Yes Teeth Condition: intact Mallampatti Score: 2 Thyromental (T-M) distance: > 6 cm Mandibulo Hyoid distance: > 3 cm - Respiratory Respiratory Physical: lungs clear Smoking Status: Never smoker Discussed smoking cessation including day of surgery: No Sleep Apnea currently treated: No Sleep Apnea by current assessment: No Discussed Risks/Treatment of CY: No - Cardiovascular Tolerate Activity: Fair Heart Sounds: S1 & S2, Regular - Anesthesia Assessment and Plan ASA Class: PS, III Anesthesia Type Plan: General LMA, Block - Left ultrasound guided popliteal/sciatic nerve block for postop analgesia
[2019-03-25] MEDS: RINGER'S SOLUTION,LACTATED 1,000 ML IV PRN ×2 (13:30→17:41)
--- NOTE | 2019-03-25 14:01 | ANES ---
Anesthesia Procedure Note Procedure Note: ANESTHESIA PROCEDURE NOTE Date of Procedure: 03/25/2019. Time of procedure: 144. Performed by: Stanislav Galvez CRNA Equal Opportunity Representative: None. Preprocedure diagnosis: Left ankle fracture. Post procedure diagnosis: Same. Procedure: Left ultrasound guided popliteal/ sciatic nerve block for postoperative analgesia. Indications: The patient is a 79-year-old female, requesting left ultrasound- guided popliteal/sciatic nerve block for postoperative analgesia related to ORIF left ankle. Findings: See below. Details of the procedure: The patient was placed in the right lateral decubitus position. The tissue over the intended target site was cleansed with ChloraPrep. 1 ml Lidocaine 1 % was infiltrated to the skin and subcutaneous tissue. Under sterile technique and ultrasound guidance a 21-gauge block needle was inserted superior to the cepholateral quadrant of the left leg. the needle was passed t hrough the biceps femoris muscle to the tibial/sciatic nerve. 30 mL's of 0.5% bupivacaine plus epinephrine 1:200,000 was injected after negative aspiration for blood. Needle tip and spread of local anesthetic surrounding the tibial/sciatic nerve was observed throughout the injection with realtime ultrasound visualization. The needle was removed intact. No complications were noted. The images were retained in the Hospital medical database. EBL: Minimal. Fluids: N/A. Specimen: N/A. Post procedure condition: The patient tolerated the procedure well. No complications were noted. Thank you for this consultation. Stanislav Galvez CRNA
[2019-03-25] MEDS ORDERED: MAGNESIUM HYDROXIDE 30 ML UDC PO PRN (15:37)
[2019-03-25] MEDS ORDERED: MAG HYDROX/ALUMINUM HYD/SIMETH 30 ML UDC PO PRN (15:37)
[2019-03-25] MEDS ORDERED: ONDANSETRON HCL/PF 2 MG/ML VIAL IV PRN (15:37)
[2019-03-25] MEDS ORDERED: diphenhydrAMINE HCL 50 MG/ML VIAL IV PRN (15:37)
[2019-03-25] MEDS ORDERED: MORPHINE SULFATE 2 MG/ML DISP.SYRIN IV PRN (15:37)
[2019-03-25] MEDS ORDERED: ACETAMINOPHEN 500 MG TABLET PO PRN (15:37)
--- NOTE | 2019-03-25 15:44 | OR ---
Operative Report - Dictated Report Narrative: Date: 03/25/2019 Surgeon: Prakash Madison M.D. Counter Maker: Jroge Cabrera PA-C (provided an essential set of skilled, educated hands that assisted with transfer, positioning, prepping, draping, manipulation, retraction, irrigation, placement of implants, closure of wounds, and application of splints and dressing all of which cannot be performed by the available surgical crew) Anesthesia: General plus regional Preoperative diagnosis: Closed left bimalleolar ankle fracture. Postoperative diagnosis: Closed left bimalleolar ankle fracture. Procedure: 1. Open reduction internal fixation left medial and lateral malleolus fracture. 2. Intra-operative interpretation of radiographs. Estimated blood loss: None Tourniquet time: 85 Minutes at 275 millimeters mercury Retained implants: [employer] 7-hole VLP distal fibula plate with associated screws on the fibula, 4.0mm cannulated partially threaded cancellus screws in the medial malleolus x 48 mm x 2 Specimens: None Complications: None Indications: Mrs. Aguero is a 79-year-old female who fell at home resulting in a injury to the left ankle. They were seen in the emergency department with images obtained revealing the above injury. They were seen on the floor where the skin was examined and felt to be amenable to surgical treatment. The risks, benefits, and treatment options were discussed with the patient and the plan for open reduction internal fixation was discussed. Risks were reviewed including , blood clots, nerve/tendon/blood vessel injury, malunion, nonunion, failure of implants, prominent implants, arthrosis, persistent pain, need for additional procedures. Procedure: After a timeout, antibiotics consisting of Ancef was administered. Beanbag was utilized in order bump the operative leg and a well-padded tourniquet was applied to the operative thigh. The splint was removed and the leg was pre- scrubbed with chlorhexidine then prepped and draped in a standard sterile fashion. The extremity was exsanguinated and tourniquet was inflated. Initial attention was turned to the medial malleolus. A curvilinear incision was made over the anterior medial aspect of the distal tibia. Care was taken to protect the saphenous vein and nerve. The medial malleolus fracture was identified and the soft tissues elevated off the bony edges. Hematoma was evacuated from the fracture site. The joint was visualized and there appeared to be no talar chondral damage although there were some free medial malleolar articular cartilage fragments which were excised. The joint was thoroughly irrigated. Preliminary fixation with a reduction clamp was placed across the fracture of the medial malleolus. Attention was then turned to the lateral malleolus. A posterior lateral incision was made over the fibular fracture. Subcutaneous dissection was carried down to the fibula protecting the superficial peroneal nerve. The fracture was identified and was noted to be comminuted oblique proximal lateral to distal medial [place] B. After preparing the bony edges and reducing the fracture, K wires were utilized in order for pulmonary fixation, a 7 hole VLP plate was secured in a neutralization fashion and a 2.7 mm interfragmentary screw was placed in order to stabilize the fracture. Mini C-arm was used in order to confirm the appropriate placement and length of the implants. Care was taken to avoid placing screws into the ankle joint and the syndesmosis. Once it was felt that the fibula was adequately stabilized we returned our attention to the medial malleolus. Two parallel guidewires were placed from the tip of the medial malleolus paralleling the anterior distal tibia within the confines of the distal tibial bone. These were measured, drilled, and sequentially tightened using 2 4.0 mm partially-threaded cancellus screws. This gave good stabilizations the medial malleolus fracture. The ankle was then placed through a range of motion and had no significant crepitance. The syndesmosis was stressed and was noted to be stable. The mortise was symmetrical and intact. The wounds were then thoroughly irrigated. Subcutaneous tissue was repaired over the implants utilizing 30 and 4-0 Vicryl. The skin was closed utilizing 3-0 and 4-0 nylon. Xeroform, 4 x 4's, soft roll, and a well-padded AO splint was applied. Patient was then awoken and transferred to postanesthesia care in stable condition. All sponge, sharp, and instrument counts were correct prior to closing the wounds.
--- NOTE | 2019-03-25 16:00 | ANES ---
Post Anesthesia Discharge - Transfer of Care Transfer of Care handoff given to nurse: Yes - Discharge from PACU Discharge from PACU when meets criteria: Yes - Awake and comfortable.
--- NOTE | 2019-03-25 17:09 | ANES ---
Post Anesthesia Assessment - Vital Signs Vitals: Last Vital Signs Temp 36.9 C 03/25/19 16:36 Pulse 75 03/25/19 16:36 Resp 16 03/25/19 16:36 BP 141/71 03/25/19 16:36 Pulse Ox 92 L 03/25/19 16:36 Airway Patency: Normal - Mental Status Level Of Consciousness: Awake, Alert, Appropriate - Pain Level Pain Score: 0 - N/V Assessment Nausea/Vomiting Presence: None Dehydration:: No
[2019-03-25] MEDS: ceFAZolin SODIUM 1 GM in DEXTROSE 5 % IN WATER 100 ML IV SCH ×4 (17:43→23:16)
[2019-03-25] MEDS: ROSUVASTATIN CALCIUM 20 MG TABLET PO SCH (20:57)
[2019-03-25] MEDS ORDERED: SENNOSIDES/DOCUSATE SODIUM 1 TAB TABLET PO SCH (21:00)
[2019-03-25] MEDS ORDERED: METOPROLOL SUCCINATE 50 MG TABLET.SA PO SCH (21:00)
[2019-03-25] MEDS: ZOLPIDEM TARTRATE 5 MG TABLET PO PRN (22:47)
[2019-03-26] MEDS: oxyCODONE HCL/ACETAMINOPHEN 1 TAB TABLET PO PRN ×4 (03:35→15:35)
[2019-03-26] MEDS: ceFAZolin SODIUM 1 GM in DEXTROSE 5 % IN WATER 100 ML IV SCH ×2 (05:03)
[2019-03-26 05:34] LABS: Hematocrit 35.5 % (37.0-47.0); Hemoglobin 11.8 gm/dL (12.5-16.0); Mean Cell Volume 93.7 fl (78-100); Mean Corpuscular Hemoglobin 31.1 pg (27-31); Mean Corpuscular Hgb Conc 33.2 g/dl (32-36); Mean Platelet Volume 9.6 fl (8-12.5); Platelet Count 119 K/mm3 (150-450); Red Blood Count 3.79 M/mm3 (4.2-5.4); Red Cell Distribution Width 14.5 % (11.5-14.0); White Blood Count 15.4 K/mm3 (4.0-10.5)
[2019-03-26 05:42] LABS: Total Cells Counted 100
[2019-03-26 05:57] LABS: Albumin * 2.8 gm/dl (3.4-5.0); Anion Gap 11.4 mmol/L (6.8-13.8); BUN/Creatinine Ratio 10.9 (9.0-21.6); Ca. Corrected For Albumin 8.6 mg/dL (8.4-10.2); Carbon Dioxide 26.1 mmol/L (24-32.6); Potassium 3.5 mmol/L (3.4-4.6); Total Protein 5.2 gm/dL (6.2-8.2)
[2019-03-26 07:10] LABS: Atypical (Reactive) Lymph 1 % (0-2); Band 1 % (0-2.0); Eosinophil 1 % (0-3); Lymphocyte 61 % (20-51); Monocyte 5 % (0-9); Neutrophil 31 % (42-75); Neutrophil # 4.8 K/mm3 (1.3-6.0)
[2019-03-26 07:12] LABS: Platelet Estimate Normal (NORMAL)
[2019-03-26 07:13] LABS: Anisocytosis 1+
[2019-03-26] MEDS: PANTOPRAZOLE SODIUM 20 MG TABLET.DR PO SCH (07:36)
[2019-03-26] MEDS: SUCRALFATE 1 G TABLET PO SCH ×2 (07:36→11:17)
[2019-03-26] MEDS: LOSARTAN POTASSIUM 50 MG TABLET PO SCH (08:24)
[2019-03-26] MEDS: ACYCLOVIR 200 MG CAPSULE PO SCH (08:24)
[2019-03-26] MEDS: VENLAFAXINE HCL 37.5 MG CAP.SR.24H PO SCH (08:24)
[2019-03-26] MEDS: LACTOBACILLUS ACIDOPHILUS 1 EACH CAPSULE PO SCH (08:24)
--- NOTE | 2019-03-26 11:04 | DS ---
(1) Acute blood loss anemia Problem: Resolved (2) Closed bimalleolar fracture of left ankle Problem: Acute Qualifiers: Encounter type: initial encounter Qualified Code(s): S82.842A - Displaced bimalleolar fracture of left lower leg, initial encounter for closed fracture (3) GI bleed Problem: Resolved Qualifiers: GI bleed type/associated pathology: gastritis Gastritis type: acute gastritis Qualified Code(s): K29.01 - Acute gastritis with bleeding (4) Essential Hypertension Problem: Chronic (5) GERD (gastroesophageal reflux disease) Problem: Chronic Qualifiers: Esophagitis presence: esophagitis presence not specified Qualified Code(s): K21.9 - Gastro-esophageal reflux disease without esophagitis (6) CAD (coronary artery disease) Problem: Chronic Qualifiers: Coronary Disease-Associated Artery/Lesion type: [place] artery Trib[place] vs. transplanted heart: [place] heart Associated angina: with stable angina Qualified Code(s): I25.118 - Atherosclerotic heart disease of [place] coronary artery with other forms of angina pectoris (7) Anxiety and depression Problem: Chronic Description of Stay: 79-year-old female with a past medical history of CKD 3, coronary artery disease, hypertension, GERD, hyperlipidemia, CLL, melanoma of the lower lip, osteoarthritis, osteopenia presents from home status post fall. She was found to have a left ankle fracture, hypotension, GI bleed. She was found to have a bimalleolar fracture of the left lower extremity, orthopedics was consulted. She also was found to be anemic with a significant drop in her baseline hemoglobin from 12.4-8.5. She received 4 units of packed red blood cells with good response. Her hemoglobin improved to 13.9. Surgery was consulted and Dr. Gilmore performed an endoscopy. Endoscopy was positive for enterogastric bile reflux with gastropathy and superficial erosions. She was started on PPI and Carafate. She was seen by orthopedics, Dr. Root and had an open reduction internal fixation left medial and lateral malleolus fracture on March 25, 2019. She tolerated the procedure well. Her H&H stabilized, she had no further GI bleed. I will continue the PPI and Carafate for the next 8 to 12 weeks. She was evaluated by physical therapy and was determined to be safe to be discharged home. Patient will need a wheelchair with elevated leg rest. Ortho instructions to keep leg elevated walker patient also requiring a front wheeled walker due to being weightbearing on her left lower extremity. She will follow- up with me in the office within 1 week. Haven Aguero is confined to the home due to a left ankle fracture, patient weightbearing to left lower extremity needing to use assistive device. The need for penitentiary is for surgical incision monitoring and medication management and monitoring of vitals. The need for physical therapy and Occupational Therapy is for strengthening, gait training, endurance, balance and mobility issues. Patient will need education with ADLs due to near new nonweightbearing status and new assistive walking devices. Patient is newly nonweightbearing and will need education. The need for home health care skilled services is directly related to the time spent [id number] with the person. Procedures Performed: see notes below List Procedures: Open reduction internal fixation left medial and lateral malleolus fracture on March 25, 2019. Results and Findings: Pending Mircobiology Results 03/23/19 10:41 Blood Blood Culture - Preliminary NO GROWTH AFTER 48 HOURS 03/23/19 10:25 Blood Blood Culture - Preliminary NO GROWTH AFTER 48 HOURS Lab Pending Results 03/23/19 09:33: WBC 22.5 H, RBC 2.70 L, Hgb 8.5 L, Hct 26.5 L, MCV 98.1, MCH 31.5 H, MCHC 32.1, RDW 14.1 H, Plt Count 173, MPV 8.8, Neutrophils % (Manual) 44, Band Neuts % (Manual) 1, Lymphocytes % (Manual) 52 H, Monocytes % (Manual) 3, Neutrophils # (Manual) 9.9 H, Lymphocytes # (Manual) 11.7 H, Monocytes # (Manual) 0.7, Platelet Estimate Normal, RBC Morphology Normal 03/23/19 09:33: Sodium 140, Plasma Sodium 140, Potassium 4.1, Chloride 105, Carbon Dioxide 23.6 L, Anion Gap 15.5 H, BUN 81 H D, Creatinine 1.17, Est GFR (Non-Af Amer) 48 L, BUN/Creatinine Ratio 69.2 H, Random Glucose 105, Calcium 8.6, Calcium Adj for Albumin 8.8, Total Bilirubin 0.4, AST 18, ALT 16 L, Alkaline Phosphatase 52, Troponin I 0.031, B-Natriuretic Peptide 261, Total Protein 5.5 L, Albumin 3.4 03/23/19 09:33: Lactic Acid, Venous 1.5 03/23/19 11:55: Urine Color Yellow, Urine Appearance Clear, Urine pH 5.5, Ur Specific [place] 1.010, Urine Protein Negative, Urine Glucose (UA) Negative, Urine Ketones Negative, Urine Blood 25 H, Urine Nitrate Negative, Urine Bilirubin Negative, Urine Urobilinogen Normal, Ur Leukocyte Esterase Negative, Urine RBC 0-5, Urine WBC 0-5, Ur Epithelial Cells 0-5, Urine Bacteria None seen, Urine Culture Comments No culture indicated 03/23/19 11:55: Influenza Type A Ag Negative, Influenza Type B Ag Negative 03/23/19 12:11: Stool Occult Blood Positive H 03/23/19 14:30: Blood Type A Positive, Antibody Screen Negative, Crossmatch See Detail 03/23/19 16:47: Pathology Specimen Spec to path 03/24/19 09:32: WBC 12.7 H D, RBC 2.02 L, Hgb 6.4 L* D, Hct 20.4 L* D, MCV 101.0 H, MCH 31.7 H, MCHC 31.4 L, RDW 14.7 H, Plt Count 107 L, MPV 8.5, Neutrophils % (Manual) 32 L, Lymphocytes % (Manual) 66 H, Eosinophils % (Manual) 2, Neutrophils # (Manual) 4.1, Lymphocytes # (Manual) 8.4 H, Eosinophils # (Manual) 0.3, Platelet Estimate Decreased L, RBC Morphology Normal 03/24/19 09:32: Sodium 143 H, Plasma Sodium 144 H, Potassium 4.0, Chloride 110 H, Carbon Dioxide 23.9 L, Anion Gap 13.1, BUN 32 H D, Creatinine 1.09, Est GFR (Non-Af Amer) 52 L, BUN/Creatinine Ratio 29.4 H, Random Glucose 179 H D, Calcium 8.0 03/25/19 05:50: Hgb 13.9, Hct 42.3 03/26/19 05:29: WBC 15.4 H D, RBC 3.79 L, Hgb 11.8 L, Hct 35.5 L, MCV 93.7, MCH 31.1 H, MCHC 33.2, RDW 14.5 H, Plt Count 119 L, MPV 9.6, Neutrophils % (Manual) 31 L, Band Neuts % (Manual) 1, Lymphocytes % (Manual) 61 H, Monocytes % (Manual) 5, Eosinophils % (Manual) 1, Neutrophils # (Manual) 4.8, Lymphocytes # (Manual) 9.4 H, Monocytes # (Manual) 0.8, Eosinophils # (Manual) 0.2, Atypic/Reactive Lymphs 1, Platelet Estimate Normal, Anisocytosis 1+ 03/26/19 05:29: Sodium 140, Plasma Sodium 140, Potassium 3.5, Chloride 106, Carbon Dioxide 26.1, Anion Gap 11.4, BUN 10 D, Creatinine 0.92, Est GFR (Non-Af Amer) 63 D, BUN/Creatinine Ratio 10.9, Random Glucose 111 H D, Calcium 8.0, Calcium Adj for Albumin 8.6, Total Bilirubin 1.0, AST 20, ALT 12 L, Alkaline Phosphatase 67, Total Protein 5.2 L, Albumin 2.8 L Discharge Location: Home Disposition: Home Health Service Home Health Agency: [facility] Home Health Condition: Fair Discharge Activity: Non-Weight bearing - Left foot Discharge Diet: Resume usual diet Referrals: Tasia Jo MD [Primary Care Provider] - Problem Oriented Discharge Instructions to Patient/Family: Ankle Fracture, [id number] Additional Patient Instructions (free text): [facility] new. Please fax orders and call report upon discharge. Follow up with Dr. Madison 04/09 at 2:15p.m. Follow up with Dr. Jo 04/02 at 3:30p.m. Continue Non Weight bearing on your operative leg. Ice and elevate your operative leg Keep dressing clean and dry until your follow up appointment. Prescriptions (Any new or edited meds): Sucralfate [Carafate] 1 gm PO DAILY #90 oral.susp Dexlansoprazole [Dexilant] 30 mg PO DAILY #90 cap oxyCODONE HCL/ACETAMINOPHEN [Percocet 5 MG/325 MG] 2 tab PO Q4H PRN #90 tablet PRN Reason: Moderate Pain (Pain Scale 4-6) Sennosides/Docusate Sodium [Vegetable Lax-Stool Softnr Tab] 1 ea PO DAILY PRN #30 tab PRN Reason: Constipation Complete Home Medications List: Complete Home Medication List: Lactobacillus Rhamnosus GG [Culturelle] 1 ea PO DAILY 01/19/14 Multivit-Min/FA/Lycopen/Lutein [Centrum Silver Tablet] 1 ea PO DAILY 11/17/16 B-complex with vitamin C tablet 1 tab PO DAILY 03/23/18 acyclovir 400 mg tablet 400 mg PO .prn tab 03/23/18 furosemide 20 mg tablet 20 mg PO .1QW PRN tab 05/09/18 simethicone 125 mg capsule 125 mg PO DAILY PRN 05/09/18 [id number] 250 mg-250 mg-65 mg tablet See Rx Instructions PO Q6H PRN 05/29/18 losartan 25 mg tablet 25 mg PO DAILY #90 tab 06/20/18 zolpidem 5 mg tablet 5 mg PO HS PRN #90 tab 06/20/18 atorvastatin 40 mg tablet 40 mg PO DAILY #90 tab 09/26/18 metoprolol succinate ER 50 mg tablet,extended release 24 hr 50 mg PO DAILY #90 tab 09/26/18 spironolactone 25 mg tablet 12.5 mg PO .Mon, Wed, Fri #12 tab 12/11/18 diphenoxylate-atropine 2.5 mg-0.025 mg tablet 1 tab PO Q6H PRN #30 tab 12/21/18 venlafaxine ER 75 mg capsule,extended release 24 hr 75 mg PO DAILY #90 cap 01/07/19 Dexlansoprazole [Dexilant] 30 mg PO DAILY #90 cap 03/26/19 Sennosides/Docusate Sodium [Vegetable Lax-Stool Softnr Tab] 1 ea PO DAILY PRN #30 tab 03/26/19 Sucralfate [Carafate] 1 gm PO DAILY #90 oral.susp 03/26/19 oxyCODONE HCL/ACETAMINOPHEN [Percocet 5 MG/325 MG] 2 tab PO Q4H PRN #90 tablet 03/26/19
[2019-03-26 15:56] VITALS: BP 182/81
--- NOTE | 2019-03-26 17:17 | PN ---
Subjective - Date and Time Seen Date: 03/26/19 Time: 08:00 Subjective Narrative: She reports she is doing fairly well. She had some bleeding on her splint but otherwise is sitting in the chair waiting for therapy. She states her pain is doing okay. Objective - Vitals Vitals: Last Vital Signs Temp 36.8 C 03/26/19 15:54 Pulse 69 03/26/19 15:54 Resp 18 03/26/19 15:54 BP 182/81 H 03/26/19 15:54 Pulse Ox 98 03/26/19 15:54 - Abnormal Lab Findings Abnormal Lab Findings: Abnormal Lab Results 03/26/19 03/26/19 Range/Units 05:29 05:29 WBC 15.4 H D (4.0-10.5) K/mm3 RBC 3.79 L (4.2-5.4) M/mm3 Hgb 11.8 L (12.5-16.0) gm/dL Hct 35.5 L (37.0-47.0) % MCH 31.1 H (27-31) pg RDW 14.5 H (11.5-14.0) % Plt Count 119 L (150-450) K/mm3 Neutrophils % (Manual) 31 L (42-75) % Lymphocytes % (Manual) 61 H (20-51) % Lymphocytes # (Manual) 9.4 H (1.5-3.5) k/mm3 Random Glucose 111 H D (70-110) mg/dL ALT 12 L (19-67) U/L Total Protein 5.2 L (6.2-8.2) gm/dL Albumin 2.8 L (3.4-5.0) gm/dl - Exam Exam Narrative: Left lower extremities in splints. There is some reinforcement with some bloody drainage nothing that appears acute. Sensations intact light touch. She has brisk cap refill. She is able to flex and extend her toes. Constitutional: Present: Alert, Oriented x3 Assessment/Plan - Problems/Diagnosis (1) Bimalleolar fracture of left ankle Problem: Acute Qualifiers: Encounter type: subsequent encounter Fracture type: closed Fracture healing: with routine healing Qualified Code(s): S82.842D - Displaced bimalleolar fracture of left lower leg, subsequent encounter for closed fracture with routine healing Narrative: We will rewrap her splint. She is okay to discharge home. Nonweightbearing. Continue to ice and elevate but keep dry. We will see her back in 10 to 14 days. She should report any fever or uncontrolled pain or difficulties with the splint.
== END 2019-03-26 16:10 | disposition home health service (06) | DRG 492 ==
LOC: ER 09:03 → MS 14:20
PROVIDERS: ADMIT Family Medicine; ATTEND Internal Medicine
DX: F41.8 Other specified anxiety disorders; S82.842A Displaced bimalleolar fracture of left lower leg, initial encounter for closed fracture; D62 Acute posthemorrhagic anemia; C43.0 Malignant melanoma of lip; E86.0 Dehydration; K25.0 Acute gastric ulcer with hemorrhage; R19.7 Diarrhea, unspecified; N18.3 Chronic kidney disease, stage 3 (moderate); K31.9 Disease of stomach and duodenum, unspecified; K92.1 Melena; R06.00 Dyspnea, unspecified; K21.9 Gastro-esophageal reflux disease without esophagitis; I12.9 Hypertensive chronic kidney disease with stage 1 through stage 4 chronic kidney disease, or unspecified chronic kidney disease; K90.0 Celiac disease; W01.0XXA Fall on same level from slipping, tripping and stumbling without subsequent striking against object, initial encounter; C91.10 Chronic lymphocytic leukemia of B-cell type not having achieved remission; I25.10 Atherosclerotic heart disease of native coronary artery without angina pectoris; I95.1 Orthostatic hypotension
CPT/HCPCS: 27752; 36415; 71010; 71045; 73610; 80048; 80053; 81001; 82272; 83519; 83605; 83880; 84484; 85007; 85014; 85018; 85025; 86850; 87040; 87081; 87400; 87449; 88305; 88312; 88313; 93005; 94760; 96361; 96374; 96375; 97110; 97161; 97165; 97530; 99285; J2405; P9016